=== PATIENT | male | born 1970 | race Two or more races ===

== ENCOUNTER 2020-02-29 00:01 | Inpatient (IN) | payer MEDICARE, MEDICAID ==
[~2020-02-29] VITALS: Ht 162.6 cm; Wt 67.8 kg
[2020-02-29 00:10] VITALS: BP 114/81
[2020-02-29] MEDS ORDERED: ASPIRIN81 MG GT (00:29)
[2020-02-29] MEDS ORDERED: KLONOPIN1 MG GT (00:30)
[2020-02-29] MEDS ORDERED: DULCOLAX10 MG RC (00:31)
[2020-02-29] MEDS ORDERED: LANSOPRAZOLE30 MG GT (00:32)
[2020-02-29] MEDS ORDERED: MILK OF MA400 MG/51 GT (00:33)
[2020-02-29] MEDS ORDERED: ATORVASTATIN CA10 MG GT (00:33)
[2020-02-29] MEDS ORDERED: MULTI-DELYN237 ML GT (00:34)
[2020-02-29 00:35] LABS: APPEARANCE,URINE SLIGHTLY CLOUDY; BILIRUBIN, URINE NEGATIVE (NEGATIVE); GLUCOSE, URINE (UA) NEGATIVE (NEGATIVE); KETONES,URINE 1+ (NEGATIVE); LEUKOCYTE ESTERASE ,URINE 3+ (NEGATIVE); NITRITE,URINE NEGATIVE (NEGATIVE); PH,URINE 8 (4.5-8.0); PROTEIN,URINE 2+ (NEGATIVE); UROBILINOGEN,URINE 4 MG/DL (0.0-1.0)
[2020-02-29] MEDS ORDERED: PRO-STAT LIQUID30 ML GT (00:35)
[2020-02-29] MEDS ORDERED: RISPERDAL2 MG GT (00:36)
[2020-02-29 00:37] LABS: COLOR,URINE YELLOW
[2020-02-29 00:38] LABS: HEMATOCRIT 35.8 % (37.0-47.0); MEAN CORPUSCULAR VOLUME 86 FL (80-99); PLATELET COUNT 318 K/UL (150-450); RED BLOOD COUNT 4.14 M/UL (4.20-5.40); RED CELL DISTRIBUTION WIDTH 15.7 % (11.6-14.8)
[2020-02-29] MEDS ORDERED: TRADJENTA5 MG GT (00:42)
[2020-02-29] MEDS ORDERED: ACETAMINOPHEN500 M5 GT (00:43)
[2020-02-29] MEDS ORDERED: VITAMIN C500 M1 GT (00:44)
[2020-02-29 00:48] LABS: ANION GAP 7 mmol/L (5-15); BLOOD UREA NITROGEN 22 mg/dL (7-18); CALCIUM 9.1 MG/DL (8.5-10.1); CARBON DIOXIDE 32 MMOL/L (21-32); CHLORIDE 103 MMOL/L (98-107); CREATININE 0.5 MG/DL (0.55-1.30); POTASSIUM 3.5 MMOL/L (3.5-5.1); SODIUM 142 MMOL/L (136-145)
[2020-02-29 00:54] LABS: WHITE BLOOD COUNT 24.4 K/UL (4.8-10.8)
[2020-02-29 01:04] LABS: ALANINE AMINOTRANSFERASE 13 U/L (12-78); ALBUMIN 2.7 G/DL (3.4-5.0); ALBUMIN/GLOBULIN RATIO 0.5 (1.0-2.7); ALKALINE PHOSPHATASE 73 U/L (46-116); AMYLASE 69 U/L (25-115); ASPARTATE AMINO TRANSFERASE 24 U/L (15-37); BILIRUBIN,TOTAL 0.6 MG/DL (0.2-1.0); CKMB 1.5 NG/ML (0.0-3.6); CREATINE KINASE 71 U/L (26-308); FERRITIN 384 NG/ML (8-388); LACTATE DEHYDROGENASE 149 U/L (81-234)
--- NOTE | 2020-02-29 01:13 | Emergency Room Report ---
History of Present Illness General Chief Complaint: Dyspnea/Respdistress Source: Medical Record, EMS Present Illness HPI 49-year-old male presents the ED for shortness of breath. Coming from [facility] facility tonight. Nursing staff noted patient O2 sat was low. Was placed on nonrebreather with improvement. Patient nonverbal at baseline. History of cerebral palsy. No reported fevers or chills. Unable to provide any additional history at this time. Reported negative COVID test 2 days ago. No other aggravating or relieving factors. No other associated symptoms Allergies: Coded Allergies: No Known Allergies (Unverified , 02/29/20) COVID-19 Screening Contact w/high risk pt: Yes Experienced COVID-19 symptoms?: Yes COVID-19 Testing performed CAN STRIPER: Yes COVID-19 Screening: Negative COVID-19 COVID-19 Testing Source: 02/26/20 Patient History Past Medical History: DM, other - cerebral palsy Past Surgical History: none Pertinent Family History: none Social History: Denies: smoking, alcohol use, drug use Immunizations: UTD Reviewed Nursing Documentation: PMH: Agreed; PSxH: Agreed Nursing Documentation-PMH Hx Diabetes: Yes Review of Systems All Other Systems: limited Physical Exam Vital Signs Date Time Temp Pulse Resp B/P (MAP) Pulse Ox O2 Delivery O2 Flow Rate FiO2 02/29/20 00:05 99.3 130 16 114/81 (92) 97 Non-Rebreather 15.0 Sp02 EP Interpretation: reviewed, normal General Appearance: GCS 15, non-toxic, mild distress, other - nonverbal Head: normocephalic, atraumatic Eyes: bilateral eye normal inspection, bilateral eye PERRL ENT: hearing grossly normal, normal pharynx, no angioedema, normal voice Neck: full range of motion, supple/symm/no masses Respiratory: chest non-tender, crackles, speaking full sentences Cardiovascular #1: no edema, tachycardia Cardiovascular #2: 2+ carotid (R), 2+ carotid (L), 2+ radial (R), 2+ radial (L) , 2+ dorsalis pedis (R), 2+ dorsalis pedis (L) Gastrointestinal: normal bowel sounds, non tender, soft, non-distended, no guarding, no rebound Rectal: deferred Musculoskeletal: back normal, normal range of motion, gait/station normal, non- tender Neurologic: other - nonverbal Psychiatric: other - nonverbal Reflexes: 3+ bicep (R), 3+ bicep (L), 3+ tricep (R), 3+ tricep (L), 3+ knee (R) , 3+ knee (L) Skin: other - see nursing notes Lymphatic: no adenopathy Medical Decision Making Diagnostic Impression: Primary Impression: Respiratory distress Additional Impressions: Pneumonia Qualified Codes: J18.9 - Pneumonia, unspecified organism UTI (urinary tract infection) Qualified Codes: N39.0 - Urinary tract infection, site not specified ER Course Hospital Course 49-year-old M presenting to ED with respiratory distress, hypoxic Differential diagnoses include: Pneumonia, CHF exacerbation, pneumothorax, fluid overload Clinical course Patient placed on stretcher. On playground monitor with hypoxia on room air and tachycardia. In isolation room. I wore full PPE. After initial history and physical, I ordered labs, IV fluids, EKG, chest x-ray, blood cultures, UA. Patient placed on NRB with O2 saturation improving Labs - marked leukocytosis, hemoglobin/hematocrit stable, electrolytes ok, lactate okay, troponins negative , UA + bacteria CXR - retrocardiac consolidation EKG - sinus tachycardia no acute ischemic changes interpreted by me COVID negative given IV fluids. Given broad-spectrum antibiotics. ABG shows no significant hypercapnia or hypoxia. O2 sats improved on nonrebreather. Patient is DNR/ selective Case discussed with Dr. Rain and he agreed to the patient to his service for further care and support I feel this is a highly complex case requiring extensive working including EKG/ Rhythm strip, Xray/CT/US, Blood/urine lab work, repeat exams while in ED, and administration of strong opiates/narcotics for pain control, admission to hospital or close patient follow up. Diagnosis - pneumonia, respiratory distress, UTI Patient admitted to telemetry in serious condition Laboratory Tests Test 02/29/20 00:10 02/29/20 00:29 White Blood Count 24.4 K/UL (4.8-10.8) *H Red Blood Count 4.14 M/UL (4.20-5.40) L Hemoglobin 12.0 G/DL (12.0-16.0) Hematocrit 35.8 % (37.0-47.0) L Mean Corpuscular Volume 86 FL (80-99) Mean Corpuscular Hemoglobin 29.0 PG (27.0-31.0) Mean Corpuscular Hemoglobin Concent 33.5 G/DL (32.0-36.0) Red Cell Distribution Width 15.7 % (11.6-14.8) H Platelet Count 318 K/UL (150-450) Mean Platelet Volume 7.3 FL (6.5-10.1) Neutrophils (%) (Auto) % (45.0-75.0) Lymphocytes (%) (Auto) % (20.0-45.0) Monocytes (%) (Auto) % (1.0-10.0) Eosinophils (%) (Auto) % (0.0-3.0) Basophils (%) (Auto) % (0.0-2.0) Differential Total Cells Counted 100 Neutrophils % (Manual) 85 % (45-75) H Lymphocytes % (Manual) 9 % (20-45) L Monocytes % (Manual) 6 % (1-10) Eosinophils % (Manual) 0 % (0-3) Basophils % (Manual) 0 % (0-2) Band Neutrophils 0 % (0-8) Platelet Estimate Adequate Platelet Morphology Normal Prothrombin Time 11.7 SEC (9.30-11.50) H Prothromb Time International Ratio 1.1 (0.9-1.1) Activated Partial Thromboplast Time 24 SEC (23-33) D-Dimer 4.34 mg/L FEU (0.00-0.49) H Urine Color Yellow Urine Appearance Slightly cloudy Urine pH 8 (4.5-8.0) Urine Specific [place] 1.015 (1.005-1.035) Urine Protein 2+ (NEGATIVE) H Urine Glucose (UA) Negative (NEGATIVE) Urine Ketones 1+ (NEGATIVE) H Urine Blood 5+ (NEGATIVE) H Urine Nitrite Negative (NEGATIVE) Urine Bilirubin Negative (NEGATIVE) Urine Urobilinogen 4 MG/DL (0.0-1.0) H Urine Leukocyte Esterase 3+ (NEGATIVE) H Urine RBC 40-60 /HPF (0 - 2) H Urine WBC 20-30 /HPF (0 - 2) H Urine Squamous Epithelial Cells Few /LPF (NONE/OCC) Urine Amorphous Sediment Moderate /LPF (NONE) H Urine Bacteria Moderate /HPF (NONE) H Urine Mucus Moderate /LPF (NONE/OCC) H Sodium Level 142 MMOL/L (136-145) Potassium Level 3.5 MMOL/L (3.5-5.1) Chloride Level 103 MMOL/L (98-107) Carbon Dioxide Level 32 MMOL/L (21-32) Anion Gap 7 mmol/L (5-15) Blood Urea Nitrogen 22 mg/dL (7-18) H Creatinine 0.5 MG/DL (0.55-1.30) L Estimat Glomerular Filtration Rate > 60 mL/min (>60) Glucose Level 167 MG/DL (74-106) H Lactic Acid Level 0.80 mmol/L (0.4-2.0) Calcium Level 9.1 MG/DL (8.5-10.1) Ferritin 384 NG/ML (8-388) Total Bilirubin 0.6 MG/DL (0.2-1.0) Aspartate Amino Transf (AST/SGOT) 24 U/L (15-37) Alanine Aminotransferase (ALT/SGPT) 13 U/L (12-78) Alkaline Phosphatase 73 U/L (46-116) Lactate Dehydrogenase 149 U/L (81-234) Total Creatine Kinase 71 U/L (26-308) Creatine Kinase MB 1.5 NG/ML (0.0-3.6) Creatine Kinase MB Relative Index 2.1 Troponin I 0.000 ng/mL (0.000-0.056) C-Reactive Protein, Quantitative 13.1 mg/dL (0.00-0.90) H Pro-B-Type Natriuretic Peptide 177 pg/mL (0-125) H Total Protein 8.7 G/DL (6.4-8.2) H Albumin 2.7 G/DL (3.4-5.0) L Globulin 6.0 g/dL Albumin/Globulin Ratio 0.5 (1.0-2.7) L Amylase Level 69 U/L (25-115) Arterial Blood pH 7.485 (7.350-7.450) Arterial Blood Partial Pressure CO2 36.1 mmHg (35.0-45.0) Arterial Blood Partial Pressure O2 189.7 mmHg (75.0-100.0) H Arterial Blood HCO3 26.6 mmol/L (22.0-26.0) H Arterial Blood Oxygen Saturation 98.9 % (95-100) Arterial Blood Base Excess 3.2 (-2-2) H Nazario Test Positive EKG Diagnostic Results Rate: tachycardiac Rhythm: NSR ST Segments: no acute changes ASA given to the pt in ED: No Rhythm Strip Diag. Results EP Interpretation: yes Rhythm: NSR, no PVC's, no ectopy Chest X-Ray Diagnostic Results Chest X-Ray Diagnostic Results : Chest X-Ray Ordered: Yes # of Views/Limited/Complete: 1 View Indication: Shortness of Breath EP Interpretation: Yes Interpretation: no pneumothorax, other - retrocardiac consolidation Impression: Other - pneumonia Electronically Signed by: Electronically signed by Pancho Bradley MD Last Vital Signs Date Time Temp Pulse Resp B/P (MAP) Pulse Ox O2 Delivery O2 Flow Rate FiO2 02/29/20 00:10 130 16 Non-Rebreather 15.0 02/29/20 00:10 99.3 114/81 97 Status: improved Disposition: ADMITTED INPATIENT Condition: Serious Referrals: NON PHYSICIAN (PCP) Pancho Bradley MD Feb 29, 2020 01:13
[2020-02-29] MEDS ORDERED: Azithromycin 500 MG in NS 275 ML IV ONE (01:15)
[2020-02-29] MEDS ORDERED: Piperacillin/Tazobactam 3.375 GM in NS 110 ML IVPB ONE ×2 (01:15→09:00)
--- NOTE | 2020-02-29 01:19 | Diagnostic Imaging Report ---
EXAM: XR Chest, 1 View CLINICAL HISTORY: SOB TECHNIQUE: Frontal view of the chest. COMPARISON: No relevant prior studies available. FINDINGS: Lungs: Low lung volumes with bronchovascular crowding. Retrocardiac and left base atelectasis or consolidation. Pleural space: No pleural effusion or pneumothorax. Heart: Unremarkable. No cardiomegaly. Mediastinum: Unremarkable. Bones/joints: No acute abnormality IMPRESSION: 1. Low lung volumes with bronchovascular crowding. 2. Retrocardiac and left base atelectasis or consolidation. 3. Otherwise no acute cardiopulmonary disease. 4. If there is continued concern, recommend frontal and lateral chest radiographs or CT.
[2020-02-29 01:24] LABS: INR 1.1 (0.9-1.1)
[2020-02-29 02:30] VITALS: BP 121/78
--- NOTE | 2020-02-29 03:15 | Consultation ---
DATE OF CONSULTATION: 02/29/2020 CONSULTING PHYSICIAN: Delio Rain M.D. REQUESTING PHYSICIAN: Dayne Liriano M.D. REASON FOR CONSULTATION: Tachycardia. HISTORY OF PRESENT ILLNESS: This 49-year-old male presented to the emergency room from a shelter facility because of shortness of breath, congestion, and hypoxia. He was placed on a non-rebreather mask with some improvement. He has a history of developmental delay and cerebral palsy. The patient had a COVID swab 2 days ago at the facility that was negative. It was repeated in the emergency room at [place] and was again negative. The patient has had cough and congestion, but no fevers or other constitutional symptoms. PAST MEDICAL HISTORY: Type 2 diabetes mellitus, cerebral palsy, hypertension. ALLERGIES: None. MEDICATIONS: Reviewed and reconciled. FAMILY HISTORY: None known. SOCIAL HISTORY: Not negative for smoking or alcohol use. REVIEW OF SYSTEMS: Not obtainable from the patient. Review of shelter records is performed and pertinent data as outlined above. PHYSICAL EXAMINATION: VITAL SIGNS: Temperature 99.3, blood pressure 114/81, heart rate 130, respiratory rate 16. On a non-rebreather mask, he is saturating 97%. LUNGS: Bilateral breath sounds. Scattered rhonchi. Accessory muscle use. CARDIOVASCULAR: Regular rhythm. Rapid rate. Normal S1 and S2. No murmur. ABDOMEN: Soft. EXTREMITIES: No edema. NEUROLOGIC: Nonfocal. Moderate cognitive impairment. LABORATORY DATA: EKG with sinus tachycardia, no acute abnormalities. Chest x-ray with right basilar infiltrate and patchy infiltrate on the left. Lactic acid normal. Troponin 0. Sodium 142, potassium 3.5, bicarb 32, BUN 22, creatinine 0.5, and glucose 167. Pro-natriuretic peptide 177. Albumin 2.7. White count 24.4 and hemoglobin 12. ABG, 7.48, 36, 189. Urinalysis with 40 to 60 red cells, 20 to 30 white cells. IMPRESSION: 1. Severe sepsis. 2. Urinary tract infection. 3. Healthcare-associated pneumonia, aspiration risk. 4. Sinus tachycardia. 5. Acute myocardial ischemia. 6. Chronic diastolic congestive heart failure. 7. Leukocytosis. 8. Moderate protein calorie malnutrition. 9. Cerebral palsy. 10. Prerenal azotemia. 11. Hypovolemia and dehydration. PLAN: 1. Address advance directives. 2. Hydrate with saline. 3. Insulin coverage by sliding scale. 4. Panculture. 5. Broad-spectrum antimicrobials. 6. DVT and stress ulcer prophylaxis. Delio Rain M.D. DR: MALKA JOB#: [id number] CC:
[2020-02-29] MEDS ORDERED: Vancomycin 1gm/D5W 275ml IVPB ONE ×2 (06:00)
[2020-02-29] MEDS: NovoLOG Insulin Flexpen SUBQ SCH ×3 (06:30→18:00)
[2020-02-29] MEDS ORDERED: NovoLOG Insulin Flexpen SUBQ SCH (06:30)
[2020-02-29] MEDS ORDERED: Vancomycin 1gm vial IVPB ONE (06:31)
[2020-02-29] MEDS: NS w/KCl 20mEq 1000ml 1,000 ML IV SCH ×2 (06:38→16:47)
[2020-02-29] MEDS: Albuterol/Ipratropium 3ml neb HHN SCH ×3 (07:35→20:36)
[2020-02-29 08:00] VITALS: BP 117/74
[2020-02-29] MEDS: Heparin 5000 units/ml inj SUBQ SCH ×2 (09:00→21:03)
--- NOTE | 2020-02-29 09:44 | History and Physical Report ---
DATE OF ADMISSION: 02/29/2020 CHIEF COMPLAINT: Shortness of breath and fever. HISTORY OF PRESENT ILLNESS: The patient is an unfortunate 49-year-old male. He has a history of cerebral palsy, hypertension, diabetes, hyperlipidemia, who was transferred from a residential facility with complaints of hypoxemia. On evaluation in the emergency room, the patient was hypoxic and placed on a non-rebreather. X-ray showed left basilar retrocardiac infiltrates. The patient has been started on broad-spectrum IV antibiotic therapy. He is now admitted for further evaluation and care. PAST MEDICAL HISTORY: As above. PAST SURGICAL HISTORY: Includes a G-tube. CURRENT MEDICATIONS: Reconciled and reviewed. ALLERGIES: None. FAMILY HISTORY: None. SOCIAL HISTORY: There is no known history of tobacco, ethanol, or drugs. REVIEW OF SYSTEMS: Unobtainable, as the patient is confused. PHYSICAL EXAMINATION: VITAL SIGNS: Temperature 99, pulse 124, respirations 18, and blood pressure 121/78. GENERAL: The patient is chronically ill-appearing, thin male, in no apparent distress. HEENT: The head is normocephalic and atraumatic. NECK: Supple. No adenopathy. HEART: Regular rate and rhythm. LUNGS: Significant for diminished breath sounds with scattered rhonchi. ABDOMEN: Soft, nontender, nondistended. EXTREMITIES: Without clubbing, cyanosis, or edema. LABORATORY DATA: Sodium 142, potassium 3.5. White count 24, hemoglobin 12. UA showed 20 to 30 wbc's. ASSESSMENT: This is an unfortunate 49-year-old male with a history of cerebral palsy, hypertension, hyperlipidemia, diabetes, admitted with complaints of sepsis secondary to pneumonia. 1. Sepsis. 2. Pneumonia. 3. Respiratory failure. 4. Cerebral palsy. 5. Dysphagia. 6. Hypertension. 7. Diabetes. PLAN: IV antibiotics. Follow up pending cultures. Wean oxygen. Continue G-tube feeds. Monitor for aspiration. Continue DVT and stress ulcer prophylaxis. Cardiac treatment per [facility] consultant staff forester. ID consultation is pending. Dayne Liriano M.D. DR: SHAWNA JOB#: [id number] CC:
[2020-02-29 11:53] LABS: HEMATOCRIT 30.3 % (42.0-52.0); HEMOGLOBIN 9.8 G/DL (14.2-18.0); MEAN CORPUSCULAR VOLUME 87 FL (80-99); PLATELET COUNT 267 K/UL (150-450); RED BLOOD COUNT 3.48 M/UL (4.70-6.10); RED CELL DISTRIBUTION WIDTH 15.9 % (11.6-14.8)
[2020-02-29 11:59] LABS: WHITE BLOOD COUNT 24.9 K/UL (4.8-10.8)
[2020-02-29 12:00] VITALS: BP 102/68
--- NOTE | 2020-02-29 12:09 | Consultation ---
History of Present Illness General Date patient seen: Feb 29, 2020 Reason for Hospitalization: Dyspnea/Respdistress Present Illness HPI This is a 49-year-old male with multiple medical comorbidities who is a snf facility patient requiring care the present at [facility] with respiratory insufficiency shortness of breath admitted further care and management. On admission identified to have abnormal lab significantly low BMI as well as a large sacral decubitus ulcer stage IV. Surgery called to evaluate and assist with care and management of patient. Patient seen, patient evaluated , chart reviewed. Care plan initiated. patient states he is well. unable to provide history. on Face mask covid neg Allergies: Coded Allergies: No Known Allergies (Unverified , 02/29/20) COVID-19 Screening Contact w/high risk pt: Yes Experienced COVID-19 symptoms?: Yes COVID-19 symptoms experienced: Shortness of Breath Medication History Scheduled Acetaminophen (Acetaminophen), 325 MG ORAL Q4H, (Reported) Amino Acids/Protein Hydrolys (Pro-Stat Liquid), 30 ML ORAL DAILY, (Reported) Ascorbic Acid* (Vitamin C*), 500 MG ORAL DAILY, (Reported) Aspirin* (Aspirin*), 81 MG ORAL DAILY, (Reported) Atorvastatin Calcium* (Lipitor*), 10 MG ORAL BEDTIME, (Reported) Bisacodyl (Dulcolax), 10 MG RC DAILY, (Reported) Clonazepam* (Klonopin*), 2 MG ORAL BEDTIME, (Reported) Lansoprazole* (Lansoprazole*), 30 MG ORAL DAILY, (Reported) Linagliptin (Tradjenta), 5 MG PO ACBREAKFAST, (Reported) Magnesium Hydroxide* (Milk Of Magnesia*), 30 ML ORAL DAILY, (Reported) Multivitamin Liquid* (Multi-Delyn*), 15 ML GT DAILY, (Reported) Risperidone* (Risperdal*), 2 MG ORAL BEDTIME, (Reported) Patient History Limited by: medical condition History Provided By: Medical Record, PMD Healthcare decision maker Resuscitation status Advanced Directive on File Past Medical/Surgical History Past Medical/Surgical History: (1) Protein-calorie malnutrition, severe (2) Stage 4 skin ulcer of sacral region (3) UTI (urinary tract infection) (4) Pneumonia (5) Respiratory distress (6) SOB (shortness of breath) Review of Systems Review of Symptoms General ROS: no weight loss or fever Psychological ROS: no depression or mood changes, no memory loss Ophthalmic ROS: no visual changes or eye irritation ENT ROS: no nasal congestion, hearing loss, dizziness Allergy and Immunology ROS: no allergic symptoms or urticaria Hematological and Lymphatic ROS: no swollen glands, unusual bleeding or bruising Endocrine ROS: no polyuria, polydipsia, weight changes, temperature intolerance Respiratory ROS: no cough, shortness of breath, or wheezing Cardiovascular ROS: no chest pain or dyspnea on exertion Gastrointestinal ROS: denies abdominal pain, bright red blood in stool. Musculoskeletal ROS: no myalgias or arthralgias Neurological ROS: no TIA or stroke symptoms Dermatological ROS: no new or changing skin lesions, rashes or pruritis Physical Exam Physical Exam General appearance: alert, cooperative, no distress, appears stated age Head: Normocephalic, without obvious abnormality, atraumatic Eyes: conjunctivae/corneas clear. PERRL, EOM's intact. Fundi benign Throat: Lips, mucosa, and tongue normal. Teeth and gums normal Neck: supple, symmetrical, trachea midline, no adenopathy, thyroid: not enlarged, symmetric, no tenderness/mass/nodules, no carotid bruit and no JVD Lungs: clear to auscultation bilaterally Heart: regular rate and rhythm, S1, S2 normal, no murmur, click, rub or gallop Abdomen: soft, non-tender. Bowel sounds normal. No masses, no organomegaly Extremities: extremities normal, atraumatic, no cyanosis or edema Pulses: 2+ and symmetric Skin: Skin see below Neurologic: Grossly normal Last 24 Hour Vital Signs Date Time Temp Pulse Resp B/P (MAP) Pulse Ox O2 Delivery O2 Flow Rate FiO2 02/29/20 08:47 Venturi Mask 8.0 02/29/20 08:00 116 02/29/20 08:00 98.6 86 20 117/74 (88) 96 02/29/20 07:45 101 18 100 Venturi Mask 14.0 55 108 20 100 02/29/20 07:45 108 20 100 Venturi Mask 14.0 55 02/29/20 05:22 Non-Rebreather 15.0 02/29/20 04:25 99.0 124 18 121/78 100 Non-Rebreather 15.0 02/29/20 02:30 99.0 124 18 121/78 100 Non-Rebreather 15.0 02/29/20 00:10 130 16 Non-Rebreather 15.0 02/29/20 00:10 99.3 130 16 114/81 97 Non-Rebreather 15.0 02/29/20 00:05 99.3 130 16 114/81 (92) 97 Non-Rebreather 15.0 Intake and Output 02/28/20 02/29/20 19:00 07:00 Output Total 600 ml Balance -600 ml Output Urine Total 600 ml Laboratory Tests Test 02/29/20 00:10 02/29/20 00:29 02/29/20 11:45 White Blood Count 24.4 K/UL (4.8-10.8) *H 24.9 K/UL (4.8-10.8) *H Red Blood Count 4.14 M/UL (4.20-5.40) L 3.48 M/UL (4.70-6.10) L Hemoglobin 12.0 G/DL (12.0-16.0) 9.8 G/DL (14.2-18.0) L Hematocrit 35.8 % (37.0-47.0) L 30.3 % (42.0-52.0) L Mean Corpuscular Volume 86 FL (80-99) 87 FL (80-99) Mean Corpuscular Hemoglobin 29.0 PG (27.0-31.0) 28.2 PG (27.0-31.0) Mean Corpuscular Hemoglobin Concent 33.5 G/DL (32.0-36.0) 32.4 G/DL (32.0-36.0) Red Cell Distribution Width 15.7 % (11.6-14.8) H 15.9 % (11.6-14.8) H Platelet Count 318 K/UL (150-450) 267 K/UL (150-450) Mean Platelet Volume 7.3 FL (6.5-10.1) 6.7 FL (6.5-10.1) Neutrophils (%) (Auto) % (45.0-75.0) % (45.0-75.0) Lymphocytes (%) (Auto) % (20.0-45.0) % (20.0-45.0) Monocytes (%) (Auto) % (1.0-10.0) % (1.0-10.0) Eosinophils (%) (Auto) % (0.0-3.0) % (0.0-3.0) Basophils (%) (Auto) % (0.0-2.0) % (0.0-2.0) Differential Total Cells Counted 100 Neutrophils % (Manual) 85 % (45-75) H Pending Lymphocytes % (Manual) 9 % (20-45) L Pending Monocytes % (Manual) 6 % (1-10) Eosinophils % (Manual) 0 % (0-3) Basophils % (Manual) 0 % (0-2) Band Neutrophils 0 % (0-8) Platelet Estimate Adequate Pending Platelet Morphology Normal Pending Prothrombin Time 11.7 SEC (9.30-11.50) H Prothromb Time International Ratio 1.1 (0.9-1.1) Activated Partial Thromboplast Time 24 SEC (23-33) D-Dimer 4.34 mg/L FEU (0.00-0.49) H Urine Color Yellow Urine Appearance Slightly cloudy Urine pH 8 (4.5-8.0) Urine Specific [place] 1.015 (1.005-1.035) Urine Protein 2+ (NEGATIVE) H Urine Glucose (UA) Negative (NEGATIVE) Urine Ketones 1+ (NEGATIVE) H Urine Blood 5+ (NEGATIVE) H Urine Nitrite Negative (NEGATIVE) Urine Bilirubin Negative (NEGATIVE) Urine Urobilinogen 4 MG/DL (0.0-1.0) H Urine Leukocyte Esterase 3+ (NEGATIVE) H Urine RBC 40-60 /HPF (0 - 2) H Urine WBC 20-30 /HPF (0 - 2) H Urine Squamous Epithelial Cells Few /LPF (NONE/OCC) Urine Amorphous Sediment Moderate /LPF (NONE) H Urine Bacteria Moderate /HPF (NONE) H Urine Mucus Moderate /LPF (NONE/OCC) H Sodium Level 142 MMOL/L (136-145) Pending Potassium Level 3.5 MMOL/L (3.5-5.1) Pending Chloride Level 103 MMOL/L (98-107) Pending Carbon Dioxide Level 32 MMOL/L (21-32) Pending Anion Gap 7 mmol/L (5-15) Blood Urea Nitrogen 22 mg/dL (7-18) H Pending Creatinine 0.5 MG/DL (0.55-1.30) L Pending Estimat Glomerular Filtration Rate > 60 mL/min (>60) Pending Glucose Level 167 MG/DL (74-106) H Pending Lactic Acid Level 0.80 mmol/L (0.4-2.0) Calcium Level 9.1 MG/DL (8.5-10.1) Pending Ferritin 384 NG/ML (8-388) Total Bilirubin 0.6 MG/DL (0.2-1.0) Pending Aspartate Amino Transf (AST/SGOT) 24 U/L (15-37) Pending Alanine Aminotransferase (ALT/SGPT) 13 U/L (12-78) Pending Alkaline Phosphatase 73 U/L (46-116) Pending Lactate Dehydrogenase 149 U/L (81-234) Total Creatine Kinase 71 U/L (26-308) Creatine Kinase MB 1.5 NG/ML (0.0-3.6) Creatine Kinase MB Relative Index 2.1 Troponin I 0.000 ng/mL (0.000-0.056) C-Reactive Protein, Quantitative 13.1 mg/dL (0.00-0.90) H Pro-B-Type Natriuretic Peptide 177 pg/mL (0-125) H Total Protein 8.7 G/DL (6.4-8.2) H Pending Albumin 2.7 G/DL (3.4-5.0) L Pending Globulin 6.0 g/dL Pending Albumin/Globulin Ratio 0.5 (1.0-2.7) L Amylase Level 69 U/L (25-115) Arterial Blood pH 7.485 (7.350-7.450) Arterial Blood Partial Pressure CO2 36.1 mmHg (35.0-45.0) Arterial Blood Partial Pressure O2 189.7 mmHg (75.0-100.0) H Arterial Blood HCO3 26.6 mmol/L (22.0-26.0) H Arterial Blood Oxygen Saturation 98.9 % (95-100) Arterial Blood Base Excess 3.2 (-2-2) H Nazario Test Positive Magnesium Level Pending Thyroid Stimulating Hormone (TSH) Pending Microbiology Date/Time Source Procedure Growth Status 02/29/20 00:30 Nasopharynx SARS-CoV-2 RdRp Gene Assay - Final Complete Height (Feet): 5 Height (Inches): 4.00 Weight (Pounds): 114 Medications Current Medications Medications (Trade) Dose Ordered Sig/Mohan Route PRN Reason Start Time Stop Time Status Last Admin Dose Admin Acetaminophen (Tylenol) 650 mg Q4H PRN ORAL fever/bright 02/29/20 02:15 03/30/20 02:14 Albuterol/ Ipratropium (Albuterol/ Ipratropium) 3 ml Q6HRT HHN 02/29/20 07:00 03/05/20 06:59 02/29/20 07:35 Clonazepam (KlonoPIN) 1 mg BEDTIME ORAL 02/29/20 21:00 03/07/20 20:59 Dextrose (Dextrose 50%) 25 ml Q30M PRN IV Hypoglycemia 02/29/20 02:15 05/29/20 02:14 Dextrose (Dextrose 50%) 50 ml Q30M PRN IV Hypoglycemia 02/29/20 02:15 05/29/20 02:14 Heparin Sodium (Porcine) (Heparin 5000 units/ml) 5,000 units EVERY 12 HOURS SUBQ 02/29/20 09:00 04/14/20 08:59 02/29/20 09:00 Insulin Aspart (NovoLOG) BEFORE MEALS AND HS SUBQ 02/29/20 06:30 05/29/20 06:29 Potassium Chloride/Sodium Chloride 1,000 ml @ 100 mls/hr Q10H IV 02/29/20 07:00 03/30/20 06:59 02/29/20 06:38 Risperidone (RisperDAL) 1 mg BEDTIME ORAL 02/29/20 21:00 04/14/20 20:59 Vancomycin HCl ([facility] pharmacy to dose) 1 ea DAILY PRN MISC Per rx protocol 02/29/20 02:15 03/30/20 02:14 Vancomycin HCl 750 mg/Sodium Chloride 275 ml @ 183.333 mls/hr Q12H IVPB 02/29/20 18:00 03/05/20 17:59 Assessment/Plan Problem List: (1) UTI (urinary tract infection) ICD Codes: N39.0 - Urinary tract infection, site not specified SNOMED: 44155533 Qualifiers: Qualified Codes: N39.0 - Urinary tract infection, site not specified (2) Pneumonia ICD Codes: J18.9 - Pneumonia, unspecified organism SNOMED: 153556061 Qualifiers: Qualified Codes: J18.9 - Pneumonia, unspecified organism (3) Respiratory distress Assessment & Plan: Lungs: Low lung volumes with bronchovascular crowding. Retrocardiac and left base atelectasis or consolidation. Pleural space: No pleural effusion or pneumothorax. Heart: Unremarkable. No cardiomegaly. Mediastinum: Unremarkable. Bones/joints: No acute abnormality IMPRESSION: 1. Low lung volumes with bronchovascular crowding. 2. Retrocardiac and left base atelectasis or consolidation. 3. Otherwise no acute cardiopulmonary disease. 4. If there is continued concern, recommend frontal and lateral chest radiographs or CT. ICD Codes: R06.03 - Acute respiratory distress SNOMED: 978794787 (4) SOB (shortness of breath) ICD Codes: R06.02 - Shortness of breath SNOMED: 202401219 (5) Protein-calorie malnutrition, severe ICD Codes: E43 - Unspecified severe protein-calorie malnutrition SNOMED: 483721541, 763894271, 882694070 (6) Stage 4 skin ulcer of sacral region Assessment & Plan: Patient identified admission to have significant low body weight BMI 19 abnormal labs and a stage IV sacral decubitus ulcer. Ulcer was identified to likely have prior intervention. Bone is palpable. There is granulation tissue identified with minimal tunneling. Periwound is intact and chronically scarred. No significant maceration identified no purulent drainage no foul odor. Wound washed and dressings applied. Care plan initiated. Nutritional optimization, local care, air mattress, turn every 2 hours, offload pressure. Will follow with recommendations. Thank you for let me participate in patient's care ICD Codes: L98.429 - Non-pressure chronic ulcer of back with unspecified severity SNOMED: 39994342, 135872547 Yaniv Eden Feb 29, 2020 12:09
[2020-02-29 12:12] LABS: ANION GAP 9 mmol/L (5-15); BLOOD UREA NITROGEN 16 mg/dL (7-18); CALCIUM 8.6 MG/DL (8.5-10.1); CARBON DIOXIDE 29 MMOL/L (21-32); CHLORIDE 106 MMOL/L (98-107); CREATININE 0.3 MG/DL (0.55-1.30); POTASSIUM 3.6 MMOL/L (3.5-5.1); SODIUM 144 MMOL/L (136-145)
[2020-02-29 12:25] LABS: ALANINE AMINOTRANSFERASE 14 U/L (12-78); ALBUMIN 2.2 G/DL (3.4-5.0); ALBUMIN/GLOBULIN RATIO 0.5 (1.0-2.7); ALKALINE PHOSPHATASE 64 U/L (46-116); ASPARTATE AMINO TRANSFERASE 20 U/L (15-37); BILIRUBIN,TOTAL 0.7 MG/DL (0.2-1.0)
[2020-02-29 16:00] VITALS: BP 110/72
[2020-02-29] MEDS: Vancomycin 750mg/NS 275ml IVPB SCH ×2 (17:56)
[2020-02-29 20:00] VITALS: BP 119/70
[2020-03-01] VITALS: BP 117/72
--- NOTE | 2020-03-01 00:28 | Cardiology Progress Note ---
Subjective DATE OF SERVICE: Mar 01, 2020 Still withdrawn and lethargic. Congested and SOB. Remains on empiric abx Objective Last 24 Hour Vital Signs Date Time Temp Pulse Resp B/P (MAP) Pulse Ox O2 Delivery O2 Flow Rate FiO2 02/29/20 21:00 Venturi Mask 6.0 02/29/20 20:31 104 20 100 Venturi Mask 6.0 35 102 20 98 02/29/20 20:00 90 02/29/20 20:00 97.5 92 22 119/70 (86) 100 02/29/20 16:00 98.0 105 18 110/72 (85) 99 02/29/20 16:00 105 02/29/20 13:02 100 18 100 Venturi Mask 6.0 35 98 20 100 02/29/20 12:00 100 02/29/20 12:00 98.2 85 20 102/68 (79) 98 02/29/20 08:47 Venturi Mask 8.0 02/29/20 08:00 116 02/29/20 08:00 98.6 86 20 117/74 (88) 96 02/29/20 07:45 101 18 100 Venturi Mask 14.0 55 108 20 100 02/29/20 07:45 108 20 100 Venturi Mask 14.0 55 02/29/20 05:22 Non-Rebreather 15.0 02/29/20 04:25 99.0 124 18 121/78 100 Non-Rebreather 15.0 02/29/20 02:30 99.0 124 18 121/78 100 Non-Rebreather 15.0 ROS: no change from my dictation of 02/28/20 HEENT: normal ENT inspection RHYTHM: ST, PACs LUNGS: bilat. rhonchi and rales CARDIAC: regular rhythm, normal S1 and S2, tachycardia ABDOMEN: normal bowel sounds, non tender, soft, no organomegaly, no mass EXTREMITIES: non-tender, No edema Laboratory Tests Test 02/29/20 00:29 02/29/20 11:45 02/29/20 23:48 Arterial Blood pH 7.485 (7.350-7.450) Arterial Blood Partial Pressure CO2 36.1 mmHg (35.0-45.0) Arterial Blood Partial Pressure O2 189.7 mmHg (75.0-100.0) H Arterial Blood HCO3 26.6 mmol/L (22.0-26.0) H Arterial Blood Oxygen Saturation 98.9 % (95-100) Arterial Blood Base Excess 3.2 (-2-2) H Nazario Test Positive White Blood Count 24.9 K/UL (4.8-10.8) *H Red Blood Count 3.48 M/UL (4.70-6.10) L Hemoglobin 9.8 G/DL (14.2-18.0) L Hematocrit 30.3 % (42.0-52.0) L Mean Corpuscular Volume 87 FL (80-99) Mean Corpuscular Hemoglobin 28.2 PG (27.0-31.0) Mean Corpuscular Hemoglobin Concent 32.4 G/DL (32.0-36.0) Red Cell Distribution Width 15.9 % (11.6-14.8) H Platelet Count 267 K/UL (150-450) Mean Platelet Volume 6.7 FL (6.5-10.1) Neutrophils (%) (Auto) % (45.0-75.0) Lymphocytes (%) (Auto) % (20.0-45.0) Monocytes (%) (Auto) % (1.0-10.0) Eosinophils (%) (Auto) % (0.0-3.0) Basophils (%) (Auto) % (0.0-2.0) Differential Total Cells Counted 100 Neutrophils % (Manual) 84 % (45-75) H Lymphocytes % (Manual) 13 % (20-45) L Monocytes % (Manual) 3 % (1-10) Eosinophils % (Manual) 0 % (0-3) Basophils % (Manual) 0 % (0-2) Band Neutrophils 0 % (0-8) Platelet Estimate Adequate Platelet Morphology Normal Hypochromasia 2+ Anisocytosis 1+ Sodium Level 144 MMOL/L (136-145) Potassium Level 3.6 MMOL/L (3.5-5.1) Chloride Level 106 MMOL/L (98-107) Carbon Dioxide Level 29 MMOL/L (21-32) Anion Gap 9 mmol/L (5-15) Blood Urea Nitrogen 16 mg/dL (7-18) Creatinine 0.3 MG/DL (0.55-1.30) L Estimat Glomerular Filtration Rate > 60 mL/min (>60) Glucose Level 150 MG/DL (74-106) H Calcium Level 8.6 MG/DL (8.5-10.1) Magnesium Level 2.0 MG/DL (1.8-2.4) Total Bilirubin 0.7 MG/DL (0.2-1.0) Aspartate Amino Transf (AST/SGOT) 20 U/L (15-37) Alanine Aminotransferase (ALT/SGPT) 14 U/L (12-78) Alkaline Phosphatase 64 U/L (46-116) Total Protein 6.6 G/DL (6.4-8.2) Albumin 2.2 G/DL (3.4-5.0) L Globulin 4.4 g/dL Albumin/Globulin Ratio 0.5 (1.0-2.7) L Thyroid Stimulating Hormone (TSH) 3.466 uiU/mL (0.358-3.740) POC Whole Blood Glucose 114 MG/DL (74-106) H Microbiology Date/Time Source Procedure Growth Status 02/29/20 00:30 Nasopharynx SARS-CoV-2 RdRp Gene Assay - Final Complete Assessment/Plan Assessment/Plan Healthcare associated PNA Aspiration Sepsis Sinus tachycardia Acute myocardial ischemia Leukocytosis Hypovolemia/dehydration Stage 4 sacral decubitus Severe protein/calorie malnutrition 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
[2020-03-01] MEDS: Albuterol/Ipratropium 3ml neb HHN SCH ×4 (00:38→20:09)
[2020-03-01] MEDS: NS w/KCl 20mEq 1000ml 1,000 ML IV SCH ×3 (03:44→22:31)
[2020-03-01 04:00] VITALS: BP 119/73
[2020-03-01] MEDS: NovoLOG Insulin Flexpen SUBQ SCH ×4 (06:00→17:51)
[2020-03-01] MEDS: Vancomycin 750mg/NS 275ml IVPB SCH ×4 (06:12→17:49)
--- NOTE | 2020-03-01 08:16 | General Progress Note ---
Assessment/Plan Problem List: (1) Hospital-acquired pneumonia ICD Codes: J18.9 - Pneumonia, unspecified organism; Y95 - Nosocomial condition SNOMED: 075118578 (2) Pneumonia ICD Codes: J18.9 - Pneumonia, unspecified organism SNOMED: 015568391 Qualifiers: Qualified Codes: J18.9 - Pneumonia, unspecified organism (3) SOB (shortness of breath) ICD Codes: R06.02 - Shortness of breath SNOMED: 291848472 (4) Stage 4 skin ulcer of sacral region ICD Codes: L98.429 - Non-pressure chronic ulcer of back with unspecified severity SNOMED: 67333708, 484800384 (5) Protein-calorie malnutrition, severe ICD Codes: E43 - Unspecified severe protein-calorie malnutrition SNOMED: 706857554, 565392280, 946776251 Status: stable, progressing Assessment/Plan: cont iv abx follow up cultures monitor cxr ivf gt feeds dvt/stress ulcer prophylaxis turn q2 wound care cont resp care suctioning RT to try to wean fio2 per surgery Subjective Constitutional: Reports: malaise, weakness HEENT: Reports: no symptoms Cardiovascular: Reports: no symptoms Respiratory: Reports: cough, shortness of breath, sputum Gastrointestinal/Abdominal: Reports: difficulty swallowing Genitourinary: Reports: no symptoms Neurologic/Psychiatric: Reports: pre-existing deficit Endocrine: Reports: no symptoms Hematologic/Lymphatic: Reports: no symptoms Allergies: Coded Allergies: No Known Allergies (Unverified , 02/29/20) All Systems: reviewed and negative except above Subjective slightly better today. decreased fio2 requirements. remains on ventimask. per RT decreased secretions. on iv abx. tolerating GT feeds. withdrawn and poorly responsive. Objective Last 24 Hour Vital Signs Date Time Temp Pulse Resp B/P (MAP) Pulse Ox O2 Delivery O2 Flow Rate FiO2 03/01/20 07:52 88 20 100 Venturi Mask 6.0 35 85 18 100 03/01/20 04:00 97.9 96 22 119/73 (88) 100 03/01/20 04:00 91 03/01/20 00:39 105 20 100 Venturi Mask 6.0 35 106 20 99 03/01/20 00:00 96.6 107 24 117/72 (87) 100 03/01/20 00:00 101 9/12/20 21:00 Venturi Mask 6.0 02/29/20 20:31 104 20 100 Venturi Mask 6.0 35 102 20 98 02/29/20 20:00 90 02/29/20 20:00 97.5 92 22 119/70 (86) 100 02/29/20 16:00 98.0 105 18 110/72 (85) 99 02/29/20 16:00 105 02/29/20 13:02 100 18 100 Venturi Mask 6.0 35 98 20 100 02/29/20 12:00 100 02/29/20 12:00 98.2 85 20 102/68 (79) 98 02/29/20 08:47 Venturi Mask 8.0 Intake and Output 02/29/20 03/01/20 19:00 07:00 Intake Total 30 ml 480 ml Output Total 1200 ml 400 ml Balance -1170 ml 80 ml Intake Free Water 150 ml Tube Feeding 30 ml 330 ml Output Urine Total 1200 ml 400 ml Laboratory Tests 02/29/20 11:45: White Blood Count 24.9*H, Red Blood Count 3.48L, Hemoglobin 9.8L, Hematocrit 30.3L, Mean Corpuscular Volume 87, Mean Corpuscular Hemoglobin 28.2, Mean Corpuscular Hemoglobin Concent 32.4, Red Cell Distribution Width 15.9H, Platelet Count 267, Mean Platelet Volume 6.7, Neutrophils (%) (Auto) , Lymphocytes (%) (Auto) , Monocytes (%) (Auto) , Eosinophils (%) (Auto) , Basophils (%) (Auto) , Differential Total Cells Counted 100, Neutrophils % ( Manual) 84H, Lymphocytes % (Manual) 13L, Monocytes % (Manual) 3, Eosinophils % ( Manual) 0, Basophils % (Manual) 0, Band Neutrophils 0, Platelet Estimate Adequate, Platelet Morphology Normal, Hypochromasia 2+, Anisocytosis 1+, Sodium Level 144, Potassium Level 3.6, Chloride Level 106, Carbon Dioxide Level 29, Anion Gap 9, Blood Urea Nitrogen 16, Creatinine 0.3L, Estimat Glomerular Filtration Rate > 60, Glucose Level 150H, Calcium Level 8.6, Magnesium Level 2.0 , Total Bilirubin 0.7, Aspartate Amino Transf (AST/SGOT) 20, Alanine Aminotransferase (ALT/SGPT) 14, Alkaline Phosphatase 64, Total Protein 6.6, Albumin 2.2L, Globulin 4.4, Albumin/Globulin Ratio 0.5L, Thyroid Stimulating Hormone (TSH) 3.466 02/29/20 23:48: POC Whole Blood Glucose 114H Height (Feet): 5 Height (Inches): 4.00 Weight (Pounds): 114 General Appearance: WD/WN, lethargic, confused, thin EENT: normal ENT inspection Neck: non-tender, normal alignment, supple Cardiovascular: normal peripheral pulses, normal rate, regular rhythm Respiratory/Chest: chest wall non-tender, rhonchi - bilaterally Abdomen: normal bowel sounds, non tender, soft, no organomegaly Edema: no edema noted Arm (L), no edema noted Arm (R) Neurologic: disoriented, unresponsive, aphasia Lymphatic: normal anterior cervical (L), normal anterior cervical (R) Dayne Liriano MD Mar 01, 2020 08:16
[2020-03-01 08:36] VITALS: BP 109/63
[2020-03-01] MEDS: Heparin 5000 units/ml inj SUBQ SCH ×2 (09:21→21:03)
[2020-03-01 10:16] LABS: HEMATOCRIT 30.5 % (42.0-52.0); HEMOGLOBIN 9.7 G/DL (14.2-18.0); MEAN CORPUSCULAR VOLUME 88 FL (80-99); PLATELET COUNT 240 K/UL (150-450); RED BLOOD COUNT 3.46 M/UL (4.70-6.10); RED CELL DISTRIBUTION WIDTH 15.6 % (11.6-14.8); WHITE BLOOD COUNT 15.6 K/UL (4.8-10.8)
[2020-03-01 10:34] LABS: ALANINE AMINOTRANSFERASE 12 U/L (12-78); ALBUMIN 2.2 G/DL (3.4-5.0); ALBUMIN/GLOBULIN RATIO 0.4 (1.0-2.7); ALKALINE PHOSPHATASE 61 U/L (46-116); ANION GAP 8 mmol/L (5-15); ASPARTATE AMINO TRANSFERASE 18 U/L (15-37); BILIRUBIN,TOTAL 0.4 MG/DL (0.2-1.0); BLOOD UREA NITROGEN 9 mg/dL (7-18); CALCIUM 8.3 MG/DL (8.5-10.1); CARBON DIOXIDE 28 MMOL/L (21-32); CHLORIDE 110 MMOL/L (98-107); CREATININE 0.3 MG/DL (0.55-1.30); POTASSIUM 3.9 MMOL/L (3.5-5.1); SODIUM 146 MMOL/L (136-145)
[2020-03-01 12:00] VITALS: BP 110/69
[2020-03-01] MEDS: Piperacillin/Tazobactam 3.375 GM in NS 110 ML IVPB SCH ×2 (13:09→21:26)
--- NOTE | 2020-03-01 13:44 | Consultation ---
DATE OF CONSULTATION: 03/01/2020 HISTORY OF PRESENT ILLNESS: This is a 49-year-old unfortunate male who was transferred from a [facility] due to fever and congestion. The patient suffered a fall earlier this year resulting in quadriplegia. He is well known also to have developmental delay and cerebral palsy. The patient is COVID negative few days ago. The patient had bilateral pneumonia, he was placed on nonrebreather mask, currently he is on Ventimask and looking better. He had chronic tracheostomy. PAST MEDICAL HISTORY: Diabetes mellitus, cerebral palsy, cord transection, quadriplegia, hypertension. CURRENT MEDICATIONS: Klonopin, DuoNebs, Risperdal, vancomycin, Zosyn. REVIEW OF SYSTEMS: Not obtainable. PHYSICAL EXAMINATION: GENERAL: Reveals 49-year-old male. HEENT: Unremarkable. Tracheostomy site is clean. CHEST: Clear breath sounds bilaterally with normal heart sounds. ABDOMEN: Soft. EXTREMITIES: There is no edema. VITAL SIGNS: O2 saturation 100% on Venitmask with 35% FiO2, blood pressure 101/60, heart rate 104, respirations 18. LABORATORY DATA: White count 24, hemoglobin 9.8, glucose 114. ABG, pH 7.48, pCO2 36, pO2 189. X-ray chest shows left basilar pneumonia. IMPRESSION: 1. USP acquired pneumonia. 2. Developmental delay. 3. History of quadriplegia. 4. Chronic tracheostomy. DISCUSSION: We will resume Zosyn. Continue oxygen. We will titrate down breathing treatments. Agree with vancomycin. We will follow. Yovany Scott M.D. DR: Luanne JOB#: [id number] CC:
[2020-03-01 16:00] VITALS: BP 117/68
--- NOTE | 2020-03-01 16:43 | Surgery Progress Note ---
Surgery Progress Note Subjective Symptoms: tolerating diet, passing flatus, BM, other Objective Last 24 Hour Vital Signs Date Time Temp Pulse Resp B/P (MAP) Pulse Ox O2 Delivery O2 Flow Rate FiO2 03/01/20 12:00 80 03/01/20 12:00 98.3 98 19 110/69 (83) 97 03/01/20 08:46 Venturi Mask 4.0 03/01/20 08:36 98.0 109 18 109/63 (78) 100 03/01/20 08:00 85 03/01/20 07:52 88 20 100 Venturi Mask 6.0 35 85 18 100 03/01/20 04:00 97.9 96 22 119/73 (88) 100 03/01/20 04:00 91 03/01/20 00:39 105 20 100 Venturi Mask 6.0 35 106 20 99 03/01/20 00:00 96.6 107 24 117/72 (87) 100 03/01/20 00:00 101 02/29/20 21:00 Venturi Mask 6.0 02/29/20 20:31 104 20 100 Venturi Mask 6.0 35 102 20 98 02/29/20 20:00 90 02/29/20 20:00 97.5 92 22 119/70 (86) 100 I&O Intake and Output 02/29/20 03/01/20 19:00 07:00 Intake Total 30 ml 480 ml Output Total 1200 ml 400 ml Balance -1170 ml 80 ml Intake Free Water 150 ml Tube Feeding 30 ml 330 ml Output Urine Total 1200 ml 400 ml Dressing: saturated Cardiovascular: RSR Respiratory: decreased breath sounds Abdomen: soft, non-tender, present bowel sounds Extremities: no edema, no tenderness, no cyanosis Laboratory Tests Test 02/29/20 23:48 03/01/20 10:00 POC Whole Blood Glucose 114 MG/DL (74-106) H White Blood Count 15.6 K/UL (4.8-10.8) H Red Blood Count 3.46 M/UL (4.70-6.10) L Hemoglobin 9.7 G/DL (14.2-18.0) L Hematocrit 30.5 % (42.0-52.0) L Mean Corpuscular Volume 88 FL (80-99) Mean Corpuscular Hemoglobin 28.0 PG (27.0-31.0) Mean Corpuscular Hemoglobin Concent 31.7 G/DL (32.0-36.0) L Red Cell Distribution Width 15.6 % (11.6-14.8) H Platelet Count 240 K/UL (150-450) Mean Platelet Volume 7.4 FL (6.5-10.1) Neutrophils (%) (Auto) % (45.0-75.0) Lymphocytes (%) (Auto) % (20.0-45.0) Monocytes (%) (Auto) % (1.0-10.0) Eosinophils (%) (Auto) % (0.0-3.0) Basophils (%) (Auto) % (0.0-2.0) Differential Total Cells Counted 100 Neutrophils % (Manual) 87 % (45-75) H Lymphocytes % (Manual) 5 % (20-45) L Monocytes % (Manual) 4 % (1-10) Eosinophils % (Manual) 3 % (0-3) Basophils % (Manual) 1 % (0-2) Band Neutrophils 0 % (0-8) Platelet Estimate Adequate Platelet Morphology Normal Hypochromasia 2+ Anisocytosis 1+ Sodium Level 146 MMOL/L (136-145) H Potassium Level 3.9 MMOL/L (3.5-5.1) Chloride Level 110 MMOL/L (98-107) H Carbon Dioxide Level 28 MMOL/L (21-32) Anion Gap 8 mmol/L (5-15) Blood Urea Nitrogen 9 mg/dL (7-18) Creatinine 0.3 MG/DL (0.55-1.30) L Estimat Glomerular Filtration Rate > 60 mL/min (>60) Glucose Level 125 MG/DL (74-106) H Calcium Level 8.3 MG/DL (8.5-10.1) L Total Bilirubin 0.4 MG/DL (0.2-1.0) Aspartate Amino Transf (AST/SGOT) 18 U/L (15-37) Alanine Aminotransferase (ALT/SGPT) 12 U/L (12-78) Alkaline Phosphatase 61 U/L (46-116) Total Protein 7.2 G/DL (6.4-8.2) Albumin 2.2 G/DL (3.4-5.0) L Globulin 5.0 g/dL Albumin/Globulin Ratio 0.4 (1.0-2.7) L Plan Problems: (1) UTI (urinary tract infection) (2) Pneumonia (3) Respiratory distress Assessment & Plan: Lungs: Low lung volumes with bronchovascular crowding. Retrocardiac and left base atelectasis or consolidation. Pleural space: No pleural effusion or pneumothorax. Heart: Unremarkable. No cardiomegaly. Mediastinum: Unremarkable. Bones/joints: No acute abnormality IMPRESSION: 1. Low lung volumes with bronchovascular crowding. 2. Retrocardiac and left base atelectasis or consolidation. 3. Otherwise no acute cardiopulmonary disease. 4. If there is continued concern, recommend frontal and lateral chest radiographs or CT. (4) SOB (shortness of breath) (5) Protein-calorie malnutrition, severe (6) Stage 4 skin ulcer of sacral region Assessment & Plan: Patient identified admission to have significant low body weight BMI 19 abnormal labs and a stage IV sacral decubitus ulcer. Ulcer was identified to likely have prior intervention. Bone is palpable. There is granulation tissue identified with minimal tunneling. Periwound is intact and chronically scarred. No significant maceration identified no purulent drainage no foul odor. Wound washed and dressings applied. Care plan initiated. Nutritional optimization, local care, air mattress, turn every 2 hours, offload pressure. Will follow with recommendations. Thank you for let me participate in patient's care Yaniv Eden Mar 01, 2020 16:43
[2020-03-01 20:00] VITALS: BP 136/72
[2020-03-02] VITALS: BP 131/75
[2020-03-02] MEDS: Albuterol/Ipratropium 3ml neb HHN SCH ×4 (00:33→20:10)
[2020-03-02] MEDS: Vancomycin 750mg/NS 275ml IVPB SCH ×2 (02:15)
[2020-03-02 04:00] VITALS: BP 128/63
[2020-03-02] MEDS: Piperacillin/Tazobactam 3.375 GM in NS 110 ML IVPB SCH (05:33)
[2020-03-02] MEDS: NovoLOG Insulin Flexpen SUBQ SCH ×4 (05:33→17:29)
[2020-03-02] MEDS: NS w/KCl 20mEq 1000ml 1,000 ML IV SCH ×3 (06:15→23:06)
--- NOTE | 2020-03-02 07:05 | General Progress Note ---
Assessment/Plan Problem List: (1) Hospital-acquired pneumonia ICD Codes: J18.9 - Pneumonia, unspecified organism; Y95 - Nosocomial condition SNOMED: 789168249 (2) Pneumonia ICD Codes: J18.9 - Pneumonia, unspecified organism SNOMED: 885196874 Qualifiers: Qualified Codes: J18.9 - Pneumonia, unspecified organism (3) SOB (shortness of breath) ICD Codes: R06.02 - Shortness of breath SNOMED: 073339277 (4) Stage 4 skin ulcer of sacral region ICD Codes: L98.429 - Non-pressure chronic ulcer of back with unspecified severity SNOMED: 27028039, 805059400 (5) Protein-calorie malnutrition, severe ICD Codes: E43 - Unspecified severe protein-calorie malnutrition SNOMED: 882277627, 023872675, 690259350 Status: stable, progressing Assessment/Plan: cont iv abx follow up cultures monitor cxr ivf gt feeds- increased dvt/stress ulcer prophylaxis turn q2 wound care cont resp care suctioning wean fio2 wound care per surgery Subjective ROS Limited/Unobtainable: Yes Constitutional: Reports: malaise, weakness HEENT: Reports: no symptoms Cardiovascular: Reports: no symptoms Respiratory: Reports: cough, SOB at rest Gastrointestinal/Abdominal: Reports: difficulty swallowing Genitourinary: Reports: no symptoms Neurologic/Psychiatric: Reports: pre-existing deficit Endocrine: Reports: no symptoms Hematologic/Lymphatic: Reports: no symptoms Allergies: Coded Allergies: No Known Allergies (Unverified , 02/29/20) All Systems: reviewed and negative except above Subjective improving. decreased o2 requirements. on nasal cannula at 1L. no fevers. Ucx gnr. tolerating feeds. Objective Last 24 Hour Vital Signs Date Time Temp Pulse Resp B/P (MAP) Pulse Ox O2 Delivery O2 Flow Rate FiO2 03/02/20 04:00 98.3 74 23 128/63 (84) 96 03/02/20 04:00 90 03/02/20 00:33 77 18 100 Nasal Cannula 2.0 28 81 18 98 03/02/20 00:00 70 03/02/20 00:00 98.0 74 24 131/75 (93) 99 03/01/20 21:00 Nasal Cannula 1.0 03/01/20 20:10 75 18 100 Nasal Cannula 2.0 28 78 18 99 03/01/20 20:00 97.3 68 24 136/72 (93) 100 03/01/20 20:00 69 03/01/20 16:00 98.9 89 19 117/68 (84) 98 03/01/20 16:00 89 03/01/20 15:00 Nasal Cannula 2.0 03/01/20 12:00 80 03/01/20 12:00 98.3 98 19 110/69 (83) 97 03/01/20 08:46 Venturi Mask 4.0 03/01/20 08:36 98.0 109 18 109/63 (78) 100 03/01/20 08:00 85 03/01/20 07:52 88 20 100 Venturi Mask 6.0 35 85 18 100 Intake and Output 03/01/20 03/02/20 19:00 07:00 Intake Total 600 ml 1525 ml Output Total 1200 ml Balance -600 ml 1525 ml Intake Free Water 140 ml 195 ml IV Total 100 ml 1000 ml Tube Feeding 360 ml 330 ml Output Urine Total 1200 ml Laboratory Tests 03/01/20 10:00: White Blood Count 15.6H, Red Blood Count 3.46L, Hemoglobin 9.7L, Hematocrit 30.5L, Mean Corpuscular Volume 88, Mean Corpuscular Hemoglobin 28.0, Mean Corpuscular Hemoglobin Concent 31.7L, Red Cell Distribution Width 15.6H, Platelet Count 240, Mean Platelet Volume 7.4, Neutrophils (%) (Auto) , Lymphocytes (%) (Auto) , Monocytes (%) (Auto) , Eosinophils (%) (Auto) , Basophils (%) (Auto) , Differential Total Cells Counted 100, Neutrophils % ( Manual) 87H, Lymphocytes % (Manual) 5L, Monocytes % (Manual) 4, Eosinophils % ( Manual) 3, Basophils % (Manual) 1, Band Neutrophils 0, Platelet Estimate Adequate, Platelet Morphology Normal, Hypochromasia 2+, Anisocytosis 1+, Sodium Level 146H, Potassium Level 3.9, Chloride Level 110H, Carbon Dioxide Level 28, Anion Gap 8, Blood Urea Nitrogen 9, Creatinine 0.3L, Estimat Glomerular Filtration Rate > 60, Glucose Level 125H, Calcium Level 8.3L, Total Bilirubin 0.4, Aspartate Amino Transf (AST/SGOT) 18, Alanine Aminotransferase (ALT/SGPT) 12, Alkaline Phosphatase 61, Total Protein 7.2, Albumin 2.2L, Globulin 5.0, Albumin/Globulin Ratio 0.4L 03/01/20 16:45: Vancomycin Level Trough 8.5 03/02/20 05:23: POC Whole Blood Glucose 104 Height (Feet): 5 Height (Inches): 4.00 Weight (Pounds): 114 Objective General Appearance: WD/WN, lethargic, confused, thin EENT: normal ENT inspection Neck: non-tender, normal alignment, supple Cardiovascular: normal peripheral pulses, normal rate, regular rhythm Respiratory/Chest: chest wall non-tender, rhonchi - bilaterally Abdomen: normal bowel sounds, non tender, soft, no organomegaly Edema: no edema noted Arm (L), no edema noted Arm (R) Neurologic: disoriented, unresponsive, aphasia Lymphatic: normal anterior cervical (L), normal anterior cervical (R) Dayne Liriano MD Mar 02, 2020 07:05
[2020-03-02 08:00] VITALS: BP 122/69
[2020-03-02] MEDS: Heparin 5000 units/ml inj SUBQ SCH ×2 (09:04→20:53)
[2020-03-02] MEDS ORDERED: Vancomycin 750 MG in NS 275 ML IVPB SCH (09:45)
--- NOTE | 2020-03-02 10:33 | General Progress Note ---
Advance Care Planning Advance Care Planning Advance Care Planning Date of Discussion: A [id number] discussion with the patient regarding the patient's advanced care planning took place during this hospitalization on the above date. The discussion included the explanation and discussion of advance directives and associated forms/documents, as well as the patient's current code status. We also discussed at length the patient's medical conditions (both acute and chronic), general prognosis, treatment options, and goals of care. The following summarizes the discussion: Advance Care Planning/Goals of Care: - Will attempt to fill out an AD and/or POLST with the patient prior to discharge, if not already completed - Continue current evaluation and management of any acute and chronic medical issues - Will continue to support the patient/family - Will continue to discuss both short- and long-term goals of care DPOA-HC/Surrogate Decision Maker: None currently appointed Code Status: DNR Advanced Care Planning Forms/Documents Completed: Deferred until later encounter/visit A total of 30 minutes was spent on this discussion, including counseling, answering questions, and completing, if any, pertinent advanced care planning forms/documents. Time of note may not reflect time of encounter. Yovany Scott MD Mar 02, 2020 10:33
--- NOTE | 2020-03-02 10:34 | Consultation ---
Consult Note Consult Note Additional 30 minutes of non face to face time was spent in review of medical records, arrangement of care and discussion with consultants involved with care Yovany Scott MD Mar 02, 2020 10:34
--- NOTE | 2020-03-02 10:51 | Pulmonology Progress Note ---
Subjective ROS Limited/Unobtainable: Yes Interval Events: None new reported Constitutional: Reports: no symptoms HEENT: Repors: no symptoms Respiratory: Reports: no symptoms Cardiovascular: Reports: no symptoms Allergies: Coded Allergies: No Known Allergies (Unverified , 02/29/20) All Systems: reviewed and negative except above Objective Last 24 Hour Vital Signs Date Time Temp Pulse Resp B/P (MAP) Pulse Ox O2 Delivery O2 Flow Rate FiO2 03/02/20 09:00 Nasal Cannula 1.0 03/02/20 08:00 98.3 91 19 122/69 (86) 97 03/02/20 07:29 76 18 100 Nasal Cannula 2.0 28 76 18 98 03/02/20 04:00 98.3 74 23 128/63 (84) 96 03/02/20 04:00 90 03/02/20 00:33 77 18 100 Nasal Cannula 2.0 28 81 18 98 03/02/20 00:00 70 03/02/20 00:00 98.0 74 24 131/75 (93) 99 03/01/20 21:00 Nasal Cannula 1.0 03/01/20 20:10 75 18 100 Nasal Cannula 2.0 28 78 18 99 03/01/20 20:00 97.3 68 24 136/72 (93) 100 03/01/20 20:00 69 03/01/20 16:00 98.9 89 19 117/68 (84) 98 03/01/20 16:00 89 03/01/20 15:00 Nasal Cannula 2.0 03/01/20 12:00 80 03/01/20 12:00 98.3 98 19 110/69 (83) 97 Intake and Output 03/01/20 03/02/20 19:00 07:00 Intake Total 600 ml 1525 ml Output Total 1200 ml Balance -600 ml 1525 ml Intake Free Water 140 ml 195 ml IV Total 100 ml 1000 ml Tube Feeding 360 ml 330 ml Output Urine Total 1200 ml General Appearance: no acute distress HEENT: normocephalic, mucous membranes moist Respiratory: chest wall non-tender, lungs clear Cardiovascular: normal peripheral pulses, normal rate Abdomen: normal bowel sounds Microbiology Date/Time Source Procedure Growth Status 02/29/20 00:10 Blood Blood Culture - Preliminary NO GROWTH AFTER 48 HOURS Resulted 02/28/20 23:55 Blood Blood Culture - Preliminary NO GROWTH AFTER 48 HOURS Resulted 02/29/20 06:24 Sputum Gram Stain Pending Resulted 02/29/20 06:24 Sputum Culture - Final Staphylococcus Aureus - Mrsa Resulted 02/29/20 00:30 Nasopharynx SARS-CoV-2 RdRp Gene Assay - Final Complete 02/29/20 00:10 Urine,Clean Catch Urine Culture - Preliminary A.[email or web address] Complx - Mdr Resulted 03/01/20 08:00 Rectum Received Laboratory Tests 03/01/20 16:45: Vancomycin Level Trough 8.5 03/02/20 05:23: POC Whole Blood Glucose 104 Current Medications Medications (Trade) Dose Ordered Sig/Mohan Route PRN Reason Start Time Stop Time Status Last Admin Dose Admin Acetaminophen (Tylenol) 650 mg Q4H PRN ORAL fever/bright 03/02/20 06:15 03/30/20 02:14 Albuterol/ Ipratropium (Albuterol/ Ipratropium) 3 ml Q6HRT HHN 03/02/20 07:00 03/05/20 06:59 03/02/20 07:27 Clonazepam (KlonoPIN) 1 mg BEDTIME ORAL 03/02/20 21:00 03/07/20 20:59 Dextrose (Dextrose 50%) 25 ml Q30M PRN IV Hypoglycemia 03/02/20 06:15 05/29/20 02:14 Dextrose (Dextrose 50%) 50 ml Q30M PRN IV Hypoglycemia 03/02/20 06:15 05/29/20 02:14 Heparin Sodium (Porcine) (Heparin 5000 units/ml) 5,000 units EVERY 12 HOURS SUBQ 03/02/20 09:00 04/14/20 08:59 03/02/20 09:04 Insulin Aspart (NovoLOG) EVERY 6 HOURS SUBQ 03/02/20 12:00 05/29/20 06:29 Piperacillin Sod/ Tazobactam Sod 3.375 gm/Sodium Chloride 110 ml @ 27.5 mls/hr EVERY 8 HOURS IVPB 03/02/20 14:00 03/06/20 13:59 Potassium Chloride/Sodium Chloride 1,000 ml @ 100 mls/hr Q10H IV 03/02/20 06:15 03/30/20 06:59 Risperidone (RisperDAL) 1 mg BEDTIME ORAL 03/02/20 21:00 04/14/20 20:59 Vancomycin HCl ([facility]anco pharmacy to dose) 1 ea DAILY PRN MISC Per rx protocol 03/02/20 09:00 03/30/20 02:14 Vancomycin HCl 750 mg/Sodium Chloride 275 ml @ 183.333 mls/hr Q8H IVPB 03/02/20 09:45 03/05/20 17:59 03/02/20 09:03 Assessment/Plan Assessment/Plan IMPRESSION: 1. long term acquired pneumonia. 2. Developmental delay. 3. History of quadriplegia. 4. Chronic tracheostomy. DISCUSSION: Continue Zosyn. Continue oxygen. Continue breathing treatments. Agree with vancomycin. I will follow. Jeaneth Bunn Omar Syed MD Mar 02, 2020 10:51
[2020-03-02 12:00] VITALS: BP 126/79
[2020-03-02] MEDS: Minocycline HCl 50mg cap ORAL SCH ×2 (12:40→20:47)
[2020-03-02] MEDS ORDERED: Piperacillin/Tazobactam 3.375 GM in NS 110 ML IVPB SCH (14:00)
[2020-03-02 16:00] VITALS: BP 129/83
--- NOTE | 2020-03-02 16:58 | Surgery Progress Note ---
Surgery Progress Note Subjective Additional Comments no acute events labs improved exam improved no n/v/f/c Objective Last 24 Hour Vital Signs Date Time Temp Pulse Resp B/P (MAP) Pulse Ox O2 Delivery O2 Flow Rate FiO2 03/02/20 16:00 98.9 89 19 129/83 (98) 95 03/02/20 12:23 75 18 100 Nasal Cannula 2.0 28 78 18 99 03/02/20 12:00 97.5 87 19 126/79 (95) 98 03/02/20 09:00 Nasal Cannula 1.0 03/02/20 08:00 98.3 91 19 122/69 (86) 97 03/02/20 07:29 76 18 100 Nasal Cannula 2.0 28 76 18 98 03/02/20 04:00 98.3 74 23 128/63 (84) 96 03/02/20 04:00 90 03/02/20 00:33 77 18 100 Nasal Cannula 2.0 28 81 18 98 03/02/20 00:00 70 03/02/20 00:00 98.0 74 24 131/75 (93) 99 03/01/20 21:00 Nasal Cannula 1.0 03/01/20 20:10 75 18 100 Nasal Cannula 2.0 28 78 18 99 03/01/20 20:00 97.3 68 24 136/72 (93) 100 03/01/20 20:00 69 I&O Intake and Output 03/01/20 03/02/20 19:00 07:00 Intake Total 600 ml 1525 ml Output Total 1200 ml Balance -600 ml 1525 ml Intake Free Water 140 ml 195 ml IV Total 100 ml 1000 ml Tube Feeding 360 ml 330 ml Output Urine Total 1200 ml Dressing: other Wound: other Cardiovascular: RSR Respiratory: decreased breath sounds Abdomen: soft, non-tender, present bowel sounds Extremities: no tenderness, no cyanosis Laboratory Tests Test 03/02/20 05:23 03/02/20 11:15 POC Whole Blood Glucose 104 MG/DL (74-106) Vancomycin Level Trough 28.6 ug/mL (5.0-12.0) H Plan Problems: (1) UTI (urinary tract infection) (2) Pneumonia (3) Respiratory distress Assessment & Plan: Lungs: Low lung volumes with bronchovascular crowding. Retrocardiac and left base atelectasis or consolidation. Pleural space: No pleural effusion or pneumothorax. Heart: Unremarkable. No cardiomegaly. Mediastinum: Unremarkable. Bones/joints: No acute abnormality IMPRESSION: 1. Low lung volumes with bronchovascular crowding. 2. Retrocardiac and left base atelectasis or consolidation. 3. Otherwise no acute cardiopulmonary disease. 4. If there is continued concern, recommend frontal and lateral chest radiographs or CT. (4) SOB (shortness of breath) (5) Protein-calorie malnutrition, severe (6) Stage 4 skin ulcer of sacral region Assessment & Plan: Patient identified admission to have significant low body weight BMI 19 abnormal labs and a stage IV sacral decubitus ulcer. Ulcer was identified to likely have prior intervention. Bone is palpable. There is granulation tissue identified with minimal tunneling. Periwound is intact and chronically scarred. No significant maceration identified no purulent drainage no foul odor. Wound washed and dressings applied. Care plan initiated. Nutritional optimization, local care, air mattress, turn every 2 hours, offload pressure. Will follow with recommendations. Thank you for let me participate in patient's care Yaniv Eden Mar 02, 2020 16:58
[2020-03-02] MEDS: Vancomycin 750 MG in NS 275 ML IVPB SCH (17:17)
[2020-03-02 20:00] VITALS: BP 132/81
[2020-03-03] VITALS: BP 115/75
--- NOTE | 2020-03-03 00:20 | Cardiology Progress Note ---
Subjective DATE OF SERVICE: Mar 02, 2020 Still withdrawn and lethargic. Congested but less hypoxic and SOB. Remains on IV abx -cultures noted Objective Last 24 Hour Vital Signs Date Time Temp Pulse Resp B/P (MAP) Pulse Ox O2 Delivery O2 Flow Rate FiO2 03/02/20 21:00 Nasal Cannula 1.0 03/02/20 20:10 75 18 100 Nasal Cannula 2.0 28 72 18 98 03/02/20 20:00 97.3 82 20 132/81 (98) 96 03/02/20 16:00 98.9 89 19 129/83 (98) 95 03/02/20 12:23 75 18 100 Nasal Cannula 2.0 28 78 18 99 03/02/20 12:00 97.5 87 19 126/79 (95) 98 03/02/20 09:00 Nasal Cannula 1.0 03/02/20 08:00 98.3 91 19 122/69 (86) 97 03/02/20 07:29 76 18 100 Nasal Cannula 2.0 28 76 18 98 03/02/20 04:00 98.3 74 23 128/63 (84) 96 03/02/20 04:00 90 03/02/20 00:33 77 18 100 Nasal Cannula 2.0 28 81 18 98 ROS: no change from my dictation of 02/28/20 HEENT: normal ENT inspection RHYTHM: ST, PACs LUNGS: bilat. rhonchi and rales CARDIAC: regular rhythm, normal S1 and S2, tachycardia ABDOMEN: normal bowel sounds, non tender, soft, no organomegaly, no mass EXTREMITIES: non-tender, No edema Laboratory Tests Test 03/02/20 05:23 03/02/20 11:15 POC Whole Blood Glucose 104 MG/DL (74-106) Vancomycin Level Trough 28.6 ug/mL (5.0-12.0) H Microbiology Date/Time Source Procedure Growth Status 02/29/20 06:24 Sputum Gram Stain Pending Resulted 02/29/20 06:24 Sputum Culture - Final Staphylococcus Aureus - Mrsa Resulted 02/29/20 00:30 Nasopharynx SARS-CoV-2 RdRp Gene Assay - Final Complete 03/01/20 08:00 Rectum Received Assessment/Plan Assessment/Plan Healthcare associated MRSA PNA Aspiration Severe sepsis Sinus tachycardia Acute myocardial ischemia Leukocytosis Hypovolemia/dehydration Stage 4 sacral decubitus Severe protein/calorie malnutrition MDR Acenitobacter UTI IVF desk monitor discont'd Antimicrobials per Dr Bonds Respiratory hygiene/taper O2 DVT prophyl Skin/wound care Protein suppl Delio Rain MD Mar 03, 2020 00:20
[2020-03-03] MEDS: Albuterol/Ipratropium 3ml neb HHN SCH ×4 (00:49→19:09)
[2020-03-03] MEDS: Vancomycin 750 MG in NS 275 ML IVPB SCH ×3 (01:46→18:27)
[2020-03-03 04:00] VITALS: BP 114/74
[2020-03-03] MEDS: NovoLOG Insulin Flexpen SUBQ SCH ×5 (06:00→23:31)
[2020-03-03 06:33] LABS: BASOPHILS % (AUTO) 1.2 % (0.0-2.0); EOSINOPHILS % (AUTO) 1.7 % (0.0-3.0); HEMOGLOBIN 9.8 G/DL (14.2-18.0); LYMPHOCYTES % (AUTO) 18.7 % (20.0-45.0); MEAN CORPUSCULAR VOLUME 86 FL (80-99); MONOCYTES % (AUTO) 6.2 % (1.0-10.0); NEUTROPHILS % (AUTO) 72.2 % (45.0-75.0); PLATELET COUNT 279 K/UL (150-450); RED CELL DISTRIBUTION WIDTH 14.9 % (11.6-14.8); WHITE BLOOD COUNT 7.6 K/UL (4.8-10.8)
[2020-03-03 06:50] LABS: ALANINE AMINOTRANSFERASE 13 U/L (12-78); ALBUMIN 2.2 G/DL (3.4-5.0); ALBUMIN/GLOBULIN RATIO 0.5 (1.0-2.7); ALKALINE PHOSPHATASE 57 U/L (46-116); ANION GAP 8 mmol/L (5-15); ASPARTATE AMINO TRANSFERASE 14 U/L (15-37); BILIRUBIN,TOTAL 0.4 MG/DL (0.2-1.0); BLOOD UREA NITROGEN 8 mg/dL (7-18); CALCIUM 8.1 MG/DL (8.5-10.1); CARBON DIOXIDE 29 MMOL/L (21-32); CHLORIDE 110 MMOL/L (98-107); CREATININE 0.4 MG/DL (0.55-1.30); POTASSIUM 3.3 MMOL/L (3.5-5.1); SODIUM 147 MMOL/L (136-145)
[2020-03-03 08:00] VITALS: BP 127/81
--- NOTE | 2020-03-03 08:00 | Consultation ---
DATE OF CONSULTATION: 03/02/2020 INFECTIOUS DISEASES CONSULTATION CONSULTING PHYSICIAN: Lakhwinder Bonds MD. REFERRING PHYSICIAN: Delio Rain MD. REASON FOR CONSULTATION: Urinary tract infection. HISTORY OF PRESENTING ILLNESS: This is a 49-year-old gentleman with history of diabetes, hypertension, cerebral palsy, hyperlipidemia who was transferred from a assisted facility with hypoxemia. Chest x-ray showed left base infiltrate. He was found to have a urinary tract infection. An Infectious Diseases consultation has been obtained for antibiotics. PAST MEDICAL HISTORY: 1. History of diabetes. 2. Hypertension. 3. Hyperlipidemia. 4. Cerebral palsy. 5. Status post G-tube placement. SOCIAL HISTORY: He does not smoke, drink, or use drugs. FAMILY HISTORY: Unknown. REVIEW OF SYSTEMS: Unable to obtain currently. MEDICATIONS: As an inpatient he is on clonazepam, Risperdal, Zosyn, insulin, vancomycin, subcutaneous heparin, albuterol ipratropium, potassium. ALLERGIES: No known drug allergies. PHYSICAL EXAMINATION: VITAL SIGNS: Temperature of 98.3, T-max of 98.9, pulse of 91, respiratory rate 19, blood pressure 122/69, O2 saturation of 97%. HEENT: Pupils are equally reactive to light and accommodation. Mouth appears clean without thrush. NECK: Supple. No adenopathy. No JVD. CARDIOVASCULAR: Regular rate and rhythm. No murmurs. LUNGS: Clear to auscultation bilaterally. No crackles. No wheezes. ABDOMEN: Soft, nontender. No organomegaly. G-tube site appears clean. EXTREMITIES: No cyanosis, no clubbing, no edema. LABORATORY AND DIAGNOSTIC DATA: White count of 15.6 today, white count of 24.9 yesterday, hemoglobin 9.7, hematocrit 30.5, MCV 88, platelet count of 240 with neutrophils of 87%. Sodium 146, potassium 3.9, chloride 110, bicarb 28, BUN 9, creatinine 0.3, glucose 125, calcium 8.3. Total bilirubin 0.4, AST 18, ALT 12, alkaline phosphatase 61, total protein 7.2, albumin 2.2. Amylase of 69. C-reactive protein of 13.1. Total bilirubin 0.6, AST 24, ALT 13, alkaline phosphatase 73, LDH 149. CK 71, CK-MB 1.5. UA showing 20 to 30 white cells. Sputum cultures growing MRSA. COVID-19 test is negative. Urine culture growing Acinetobacter, gallegos resistant. Blood cultures are negative from 02/29/2020. Chest x-ray is showing retrocardiac and left base atelectasis or consolidation, bronchovascular crowding noted. ASSESSMENT: This is a 49-year-old gentleman with history of diabetes, hypertension, cerebral palsy, hyperlipidemia who came in from a assisted facility with hypoxia and is found to have: 1. MRSA pneumonia. 2. Acinetobacter urinary tract infection 3. Diabetes. 4. Hypertension. 5. Leukocytosis is improving. 6. Cerebral palsy. PLAN: 1. Continue IV vancomycin. 2. Discontinue Zosyn. 3. We will start the patient on minocycline. 4. We will follow up cultures and adjust antibiotics accordingly. I would like to thank, Dr. Rain, for this consultation. Lakhwinder Bonds M.D. DR: Fannie JOB#: [id number] CC: Delio Rain M.D.
[2020-03-03] MEDS: Minocycline HCl 50mg cap ORAL SCH ×2 (09:06→20:36)
[2020-03-03] MEDS: Heparin 5000 units/ml inj SUBQ SCH ×2 (09:07→20:38)
--- NOTE | 2020-03-03 09:18 | General Progress Note ---
Assessment/Plan Problem List: (1) Hospital-acquired pneumonia ICD Codes: J18.9 - Pneumonia, unspecified organism; Y95 - Nosocomial condition SNOMED: 657448607 (2) Pneumonia ICD Codes: J18.9 - Pneumonia, unspecified organism SNOMED: 512342347 Qualifiers: Qualified Codes: J18.9 - Pneumonia, unspecified organism (3) SOB (shortness of breath) ICD Codes: R06.02 - Shortness of breath SNOMED: 159985799 (4) Stage 4 skin ulcer of sacral region ICD Codes: L98.429 - Non-pressure chronic ulcer of back with unspecified severity SNOMED: 42714177, 793740294 (5) Protein-calorie malnutrition, severe ICD Codes: E43 - Unspecified severe protein-calorie malnutrition SNOMED: 207257285, 513728032, 472195452 Status: stable, progressing Assessment/Plan: cont iv abx per id monitor cxr ivf adjusted gt feeds- increased dvt/stress ulcer prophylaxis turn q2 wound care cont resp care artificial tears suctioning wean fio2 wound care per surgery Subjective ROS Limited/Unobtainable: No Constitutional: Reports: malaise, weakness HEENT: Reports: no symptoms Cardiovascular: Reports: no symptoms Respiratory: Reports: cough, shortness of breath Gastrointestinal/Abdominal: Reports: difficulty swallowing Genitourinary: Reports: no symptoms Neurologic/Psychiatric: Reports: no symptoms Endocrine: Reports: no symptoms Hematologic/Lymphatic: Reports: anemia Allergies: Coded Allergies: No Known Allergies (Unverified , 02/29/20) All Systems: reviewed and negative except above Subjective more alert. c/o dry eyes. ID noted. abx adjusted. remains on nasal cannula. no fever or chills. no sob. minimal cough/congestion. labs reviewed. Na trending up. low k Objective Last 24 Hour Vital Signs Date Time Temp Pulse Resp B/P (MAP) Pulse Ox O2 Delivery O2 Flow Rate FiO2 03/03/20 08:24 79 18 100 Nasal Cannula 2.0 28 76 20 98 03/03/20 04:00 97.2 78 18 114/74 (87) 100 03/03/20 00:49 72 18 99 Nasal Cannula 2.0 28 70 20 97 03/03/20 00:00 98.1 77 16 115/75 (88) 99 03/02/20 21:00 Nasal Cannula 1.0 03/02/20 20:10 75 18 100 Nasal Cannula 2.0 28 72 18 98 03/02/20 20:00 97.3 82 20 132/81 (98) 96 03/02/20 16:00 98.9 89 19 129/83 (98) 95 03/02/20 12:23 75 18 100 Nasal Cannula 2.0 28 78 18 99 03/02/20 12:00 97.5 87 19 126/79 (95) 98 Intake and Output 03/02/20 03/03/20 19:00 07:00 Intake Total 680 ml 900 ml Output Total 2100 ml 2200 ml Balance -1420 ml -1300 ml Intake Free Water 100 ml 250 ml IV Total 400 ml Tube Feeding 580 ml 250 ml Output Urine Total 2100 ml 2200 ml Laboratory Tests 03/02/20 11:15: Vancomycin Level Trough 28.6H 03/03/20 05:10: White Blood Count 7.6, Red Blood Count 3.50L, Hemoglobin 9.8L, Hematocrit 30.0L , Mean Corpuscular Volume 86, Mean Corpuscular Hemoglobin 28.1, Mean Corpuscular Hemoglobin Concent 32.7, Red Cell Distribution Width 14.9H, Platelet Count 279, Mean Platelet Volume 6.5, Neutrophils (%) (Auto) 72.2, Lymphocytes (%) (Auto) 18.7L, Monocytes (%) (Auto) 6.2, Eosinophils (%) (Auto) 1.7, Basophils (%) (Auto) 1.2, Sodium Level 147H, Potassium Level 3.3L, Chloride Level 110H, Carbon Dioxide Level 29, Anion Gap 8, Blood Urea Nitrogen 8 , Creatinine 0.4L, Estimat Glomerular Filtration Rate > 60, Glucose Level 113H, Calcium Level 8.1L, Total Bilirubin 0.4, Aspartate Amino Transf (AST/SGOT) 14L, Alanine Aminotransferase (ALT/SGPT) 13, Alkaline Phosphatase 57, Total Protein 7.0, Albumin 2.2L, Globulin 4.8, Albumin/Globulin Ratio 0.5L Height (Feet): 5 Height (Inches): 4.00 Weight (Pounds): 114 Objective General Appearance: WD/WN, lethargic, confused, thin EENT: normal ENT inspection Neck: non-tender, normal alignment, supple Cardiovascular: normal peripheral pulses, normal rate, regular rhythm Respiratory/Chest: chest wall non-tender, rhonchi - bilaterally Abdomen: normal bowel sounds, non tender, soft, no organomegaly Edema: no edema noted Arm (L), no edema noted Arm (R) Neurologic: disoriented, unresponsive, aphasia Lymphatic: normal anterior cervical (L), normal anterior cervical (R) Dayne Liriano MD Mar 03, 2020 09:18
[2020-03-03] MEDS: D5W w/KCl 20mEq 1,000 ML IV SCH ×2 (09:52→23:30)
--- NOTE | 2020-03-03 10:19 | Pulmonology Progress Note ---
Subjective ROS Limited/Unobtainable: No Interval Events: None new reported Constitutional: Reports: no symptoms HEENT: Repors: no symptoms Respiratory: Reports: no symptoms Cardiovascular: Reports: no symptoms Allergies: Coded Allergies: No Known Allergies (Unverified , 02/29/20) All Systems: reviewed and negative except above Objective Last 24 Hour Vital Signs Date Time Temp Pulse Resp B/P (MAP) Pulse Ox O2 Delivery O2 Flow Rate FiO2 03/03/20 09:00 Nasal Cannula 1.0 03/03/20 08:24 79 18 100 Nasal Cannula 2.0 28 76 20 98 03/03/20 08:00 97.3 72 18 127/81 (96) 100 03/03/20 04:00 97.2 78 18 114/74 (87) 100 03/03/20 00:49 72 18 99 Nasal Cannula 2.0 28 70 20 97 03/03/20 00:00 98.1 77 16 115/75 (88) 99 03/02/20 21:00 Nasal Cannula 1.0 03/02/20 20:10 75 18 100 Nasal Cannula 2.0 28 72 18 98 03/02/20 20:00 97.3 82 20 132/81 (98) 96 03/02/20 16:00 98.9 89 19 129/83 (98) 95 03/02/20 12:23 75 18 100 Nasal Cannula 2.0 28 78 18 99 03/02/20 12:00 97.5 87 19 126/79 (95) 98 Intake and Output 03/02/20 03/03/20 19:00 07:00 Intake Total 680 ml 900 ml Output Total 2100 ml 2200 ml Balance -1420 ml -1300 ml Intake Free Water 100 ml 250 ml IV Total 400 ml Tube Feeding 580 ml 250 ml Output Urine Total 2100 ml 2200 ml General Appearance: no acute distress HEENT: normocephalic, mucous membranes moist Respiratory: chest wall non-tender, lungs clear Cardiovascular: normal peripheral pulses, normal rate Abdomen: normal bowel sounds Microbiology Date/Time Source Procedure Growth Status 03/01/20 08:00 Nasal Nares Right MRSA Culture - Final Staphylococcus Aureus - Mrsa Complete 03/01/20 08:00 Rectum VRE Culture - Final Enterococcus Faecium - Vre Complete Laboratory Tests 03/02/20 11:15: Vancomycin Level Trough 28.6H 03/03/20 05:10: White Blood Count 7.6, Red Blood Count 3.50L, Hemoglobin 9.8L, Hematocrit 30.0L , Mean Corpuscular Volume 86, Mean Corpuscular Hemoglobin 28.1, Mean Corpuscular Hemoglobin Concent 32.7, Red Cell Distribution Width 14.9H, Platelet Count 279, Mean Platelet Volume 6.5, Neutrophils (%) (Auto) 72.2, Lymphocytes (%) (Auto) 18.7L, Monocytes (%) (Auto) 6.2, Eosinophils (%) (Auto) 1.7, Basophils (%) (Auto) 1.2, Sodium Level 147H, Potassium Level 3.3L, Chloride Level 110H, Carbon Dioxide Level 29, Anion Gap 8, Blood Urea Nitrogen 8 , Creatinine 0.4L, Estimat Glomerular Filtration Rate > 60, Glucose Level 113H, Calcium Level 8.1L, Total Bilirubin 0.4, Aspartate Amino Transf (AST/SGOT) 14L, Alanine Aminotransferase (ALT/SGPT) 13, Alkaline Phosphatase 57, Total Protein 7.0, Albumin 2.2L, Globulin 4.8, Albumin/Globulin Ratio 0.5L Current Medications Medications (Trade) Dose Ordered Sig/Mohan Route PRN Reason Start Time Stop Time Status Last Admin Dose Admin Acetaminophen (Tylenol) 650 mg Q4H PRN ORAL fever/bright 03/02/20 06:15 03/30/20 02:14 Acetaminophen (Tylenol) 650 mg Q4H PRN ORAL For Pain 03/02/20 20:00 04/01/20 19:59 03/02/20 20:51 Albuterol/ Ipratropium (Albuterol/ Ipratropium) 3 ml Q6HRT HHN 03/02/20 07:00 03/05/20 06:59 03/03/20 08:24 Artificial Tears (Akwa-Tears) 2 drop Q4H PRN BOTH EYES Dry Eyes 03/03/20 09:30 04/02/20 09:29 Clonazepam (KlonoPIN) 1 mg BEDTIME ORAL 03/02/20 21:00 03/07/20 20:59 03/02/20 20:51 Dextrose (Dextrose 50%) 25 ml Q30M PRN IV Hypoglycemia 03/02/20 06:15 05/29/20 02:14 Dextrose (Dextrose 50%) 50 ml Q30M PRN IV Hypoglycemia 03/02/20 06:15 05/29/20 02:14 Dextrose/ Electrolytes 1,000 ml @ 75 mls/hr [id number] IV 03/03/20 10:00 04/02/20 09:59 03/03/20 09:52 Heparin Sodium (Porcine) (Heparin 5000 units/ml) 5,000 units EVERY 12 HOURS SUBQ 03/02/20 09:00 04/14/20 08:59 03/03/20 09:07 Insulin Aspart (NovoLOG) EVERY 6 HOURS SUBQ 03/02/20 12:00 05/29/20 06:29 Minocycline HCl (Minocin) 100 mg Q12HR ORAL 03/02/20 13:00 03/09/20 12:59 03/03/20 09:06 Potassium Chloride (K-Dur) 30 meq ONCE GT 03/03/20 09:30 03/03/20 10:30 03/03/20 09:51 Risperidone (RisperDAL) 1 mg BEDTIME ORAL 03/02/20 21:00 04/14/20 20:59 03/02/20 20:51 Vancomycin HCl (Vanco pharmacy to dose) 1 ea DAILY PRN MISC Per rx protocol 03/02/20 09:00 03/30/20 02:14 Vancomycin HCl 750 mg/Sodium Chloride 275 ml @ 183.333 mls/hr Q8HR@0200,1000,1800 IVPB 03/02/20 18:00 03/07/20 17:59 03/03/20 09:08 Assessment/Plan Assessment/Plan IMPRESSION: 1. alf acquired pneumonia. 2. Developmental delay. 3. History of quadriplegia. 4. Chronic tracheostomy. DISCUSSION: Continue Zosyn. Continue oxygen. Continue breathing treatments. Agree with vancomycin. I will follow. Jeaneth Bunn Omar Syed MD Mar 03, 2020 10:19
--- NOTE | 2020-03-03 11:04 | Infectious Diseases Prog Note ---
Assessment/Plan Assessment/Plan antibiotics : vancomycin iv, minocycline A 1. MRSA pneumonia 2. acenitobacter UTI 3. leucocytosis improving 4. diabetes mellitus 5. hypertension 6. 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 continue iv vancomycin 6 more days 2. continue minocycline 5 more days 3. will follow up cultures Subjective ROS Limited/Unobtainable: Yes Allergies: Coded Allergies: No Known Allergies (Unverified , 02/29/20) Objective Last 24 Hour Vital Signs Date Time Temp Pulse Resp B/P (MAP) Pulse Ox O2 Delivery O2 Flow Rate FiO2 03/03/20 09:00 Nasal Cannula 1.0 03/03/20 08:24 79 18 100 Nasal Cannula 2.0 28 76 20 98 03/03/20 08:00 97.3 72 18 127/81 (96) 100 03/03/20 04:00 97.2 78 18 114/74 (87) 100 03/03/20 00:49 72 18 99 Nasal Cannula 2.0 28 70 20 97 03/03/20 00:00 98.1 77 16 115/75 (88) 99 03/02/20 21:00 Nasal Cannula 1.0 03/02/20 20:10 75 18 100 Nasal Cannula 2.0 28 72 18 98 03/02/20 20:00 97.3 82 20 132/81 (98) 96 03/02/20 16:00 98.9 89 19 129/83 (98) 95 03/02/20 12:23 75 18 100 Nasal Cannula 2.0 28 78 18 99 03/02/20 12:00 97.5 87 19 126/79 (95) 98 Height (Feet): 5 Height (Inches): 4.00 Weight (Pounds): 114 Respiratory/Chest: lungs clear Cardiovascular: normal rate, regular rhythm, no gallop/murmur Abdomen: soft, non tender, other - GT Extremities: no edema Microbiology Date/Time Source Procedure Growth Status 03/01/20 08:00 Nasal Nares Right MRSA Culture - Final Staphylococcus Aureus - Mrsa Complete 03/01/20 08:00 Rectum VRE Culture - Final Enterococcus Faecium - Vre Complete Laboratory Tests Test 03/02/20 11:15 03/03/20 05:10 Vancomycin Level Trough 28.6 ug/mL (5.0-12.0) H White Blood Count 7.6 K/UL (4.8-10.8) Red Blood Count 3.50 M/UL (4.70-6.10) L Hemoglobin 9.8 G/DL (14.2-18.0) L Hematocrit 30.0 % (42.0-52.0) L Mean Corpuscular Volume 86 FL (80-99) Mean Corpuscular Hemoglobin 28.1 PG (27.0-31.0) Mean Corpuscular Hemoglobin Concent 32.7 G/DL (32.0-36.0) Red Cell Distribution Width 14.9 % (11.6-14.8) H Platelet Count 279 K/UL (150-450) Mean Platelet Volume 6.5 FL (6.5-10.1) Neutrophils (%) (Auto) 72.2 % (45.0-75.0) Lymphocytes (%) (Auto) 18.7 % (20.0-45.0) L Monocytes (%) (Auto) 6.2 % (1.0-10.0) Eosinophils (%) (Auto) 1.7 % (0.0-3.0) Basophils (%) (Auto) 1.2 % (0.0-2.0) Sodium Level 147 MMOL/L (136-145) H Potassium Level 3.3 MMOL/L (3.5-5.1) L Chloride Level 110 MMOL/L (98-107) H Carbon Dioxide Level 29 MMOL/L (21-32) Anion Gap 8 mmol/L (5-15) Blood Urea Nitrogen 8 mg/dL (7-18) Creatinine 0.4 MG/DL (0.55-1.30) L Estimat Glomerular Filtration Rate > 60 mL/min (>60) Glucose Level 113 MG/DL (74-106) H Calcium Level 8.1 MG/DL (8.5-10.1) L Total Bilirubin 0.4 MG/DL (0.2-1.0) Aspartate Amino Transf (AST/SGOT) 14 U/L (15-37) L Alanine Aminotransferase (ALT/SGPT) 13 U/L (12-78) Alkaline Phosphatase 57 U/L (46-116) Total Protein 7.0 G/DL (6.4-8.2) Albumin 2.2 G/DL (3.4-5.0) L Globulin 4.8 g/dL Albumin/Globulin Ratio 0.5 (1.0-2.7) L Current Medications Medications (Trade) Dose Ordered Sig/Mohan Route PRN Reason Start Time Stop Time Status Last Admin Dose Admin Acetaminophen (Tylenol) 650 mg Q4H PRN ORAL fever/bright 03/02/20 06:15 03/30/20 02:14 Acetaminophen (Tylenol) 650 mg Q4H PRN ORAL For Pain 03/02/20 20:00 04/01/20 19:59 03/02/20 20:51 Albuterol/ Ipratropium (Albuterol/ Ipratropium) 3 ml Q6HRT HHN 03/02/20 07:00 03/05/20 06:59 03/03/20 08:24 Artificial Tears (Akwa-Tears) 2 drop Q4H PRN BOTH EYES Dry Eyes 03/03/20 09:30 04/02/20 09:29 Clonazepam (KlonoPIN) 1 mg BEDTIME ORAL 03/02/20 21:00 03/07/20 20:59 03/02/20 20:51 Dextrose (Dextrose 50%) 25 ml Q30M PRN IV Hypoglycemia 03/02/20 06:15 05/29/20 02:14 Dextrose (Dextrose 50%) 50 ml Q30M PRN IV Hypoglycemia 03/02/20 06:15 05/29/20 02:14 Dextrose/ Electrolytes 1,000 ml @ 75 mls/hr [id number] IV 03/03/20 10:00 04/02/20 09:59 03/03/20 09:52 Heparin Sodium (Porcine) (Heparin 5000 units/ml) 5,000 units EVERY 12 HOURS SUBQ 03/02/20 09:00 04/14/20 08:59 03/03/20 09:07 Insulin Aspart (NovoLOG) EVERY 6 HOURS SUBQ 03/02/20 12:00 05/29/20 06:29 Minocycline HCl (Minocin) 100 mg Q12HR ORAL 03/02/20 13:00 03/09/20 12:59 03/03/20 09:06 Risperidone (RisperDAL) 1 mg BEDTIME ORAL 03/02/20 21:00 04/14/20 20:59 03/02/20 20:51 Vancomycin HCl (Vanco pharmacy to dose) 1 ea DAILY PRN MISC Per rx protocol 03/02/20 09:00 03/30/20 02:14 Vancomycin HCl 750 mg/Sodium Chloride 275 ml @ 183.333 mls/hr Q8HR@0200,1000,1800 IVPB 03/02/20 18:00 03/07/20 17:59 03/03/20 09:08 Lakhwinder Bonds MD Mar 03, 2020 11:04
--- NOTE | 2020-03-03 11:48 | Diagnostic Imaging Report ---
Procedure: XRAY Chest 1v Reason for study: Reason For Exam: COUGH Comparison films: 02/29/2020. FINDINGS: A single one view chest is obtained. Vascularity is normal. Improving basilar infiltrates noted. There is some residual hazy densities right upper lobe as well as both lung bases. Cardiac and mediastinal silhouette are within normal limits. CP angles are sharp. The bony thorax appear unremarkable. IMPRESSION: Improving infiltrates with mild residual.
[2020-03-03 12:00] VITALS: BP 135/75
[2020-03-03] MEDS ORDERED: TRADJENTA5 MG GT (13:38)
[2020-03-03] MEDS ORDERED: SANTYL TP (13:38)
[2020-03-03] MEDS ORDERED: PRO-STAT LIQUID30 ML GT (13:39)
[2020-03-03 16:00] VITALS: BP 142/88
--- NOTE | 2020-03-03 18:26 | Surgery Progress Note ---
Surgery Progress Note Subjective Additional Comments leukocytosis resolved labs improved comfortable Objective Last 24 Hour Vital Signs Date Time Temp Pulse Resp B/P (MAP) Pulse Ox O2 Delivery O2 Flow Rate FiO2 03/03/20 16:00 97.7 79 18 142/88 (106) 100 03/03/20 13:09 80 18 100 Nasal Cannula 2.0 28 78 20 98 03/03/20 12:00 97.5 74 18 135/75 (95) 100 03/03/20 09:00 Nasal Cannula 1.0 03/03/20 08:24 79 18 100 Nasal Cannula 2.0 28 76 20 98 03/03/20 08:00 97.3 72 18 127/81 (96) 100 03/03/20 04:00 97.2 78 18 114/74 (87) 100 03/03/20 00:49 72 18 99 Nasal Cannula 2.0 28 70 20 97 03/03/20 00:00 98.1 77 16 115/75 (88) 99 03/02/20 21:00 Nasal Cannula 1.0 03/02/20 20:10 75 18 100 Nasal Cannula 2.0 28 72 18 98 03/02/20 20:00 97.3 82 20 132/81 (98) 96 I&O Intake and Output 03/02/20 03/03/20 19:00 07:00 Intake Total 680 ml 900 ml Output Total 2100 ml 2200 ml Balance -1420 ml -1300 ml Intake Free Water 100 ml 250 ml IV Total 400 ml Tube Feeding 580 ml 250 ml Output Urine Total 2100 ml 2200 ml Dressing: other Wound: other Cardiovascular: RSR Respiratory: decreased breath sounds Abdomen: soft, non-tender, present bowel sounds Extremities: no tenderness, no cyanosis Laboratory Tests Test 03/03/20 05:10 03/03/20 17:20 White Blood Count 7.6 K/UL (4.8-10.8) Red Blood Count 3.50 M/UL (4.70-6.10) L Hemoglobin 9.8 G/DL (14.2-18.0) L Hematocrit 30.0 % (42.0-52.0) L Mean Corpuscular Volume 86 FL (80-99) Mean Corpuscular Hemoglobin 28.1 PG (27.0-31.0) Mean Corpuscular Hemoglobin Concent 32.7 G/DL (32.0-36.0) Red Cell Distribution Width 14.9 % (11.6-14.8) H Platelet Count 279 K/UL (150-450) Mean Platelet Volume 6.5 FL (6.5-10.1) Neutrophils (%) (Auto) 72.2 % (45.0-75.0) Lymphocytes (%) (Auto) 18.7 % (20.0-45.0) L Monocytes (%) (Auto) 6.2 % (1.0-10.0) Eosinophils (%) (Auto) 1.7 % (0.0-3.0) Basophils (%) (Auto) 1.2 % (0.0-2.0) Sodium Level 147 MMOL/L (136-145) H Potassium Level 3.3 MMOL/L (3.5-5.1) L Chloride Level 110 MMOL/L (98-107) H Carbon Dioxide Level 29 MMOL/L (21-32) Anion Gap 8 mmol/L (5-15) Blood Urea Nitrogen 8 mg/dL (7-18) Creatinine 0.4 MG/DL (0.55-1.30) L Estimat Glomerular Filtration Rate > 60 mL/min (>60) Glucose Level 113 MG/DL (74-106) H Calcium Level 8.1 MG/DL (8.5-10.1) L Total Bilirubin 0.4 MG/DL (0.2-1.0) Aspartate Amino Transf (AST/SGOT) 14 U/L (15-37) L Alanine Aminotransferase (ALT/SGPT) 13 U/L (12-78) Alkaline Phosphatase 57 U/L (46-116) Total Protein 7.0 G/DL (6.4-8.2) Albumin 2.2 G/DL (3.4-5.0) L Globulin 4.8 g/dL Albumin/Globulin Ratio 0.5 (1.0-2.7) L Vancomycin Level Trough 17.0 ug/mL (5.0-12.0) H Plan Problems: (1) UTI (urinary tract infection) (2) Pneumonia (3) Respiratory distress Assessment & Plan: Lungs: Low lung volumes with bronchovascular crowding. Retrocardiac and left base atelectasis or consolidation. Pleural space: No pleural effusion or pneumothorax. Heart: Unremarkable. No cardiomegaly. Mediastinum: Unremarkable. Bones/joints: No acute abnormality IMPRESSION: 1. Low lung volumes with bronchovascular crowding. 2. Retrocardiac and left base atelectasis or consolidation. 3. Otherwise no acute cardiopulmonary disease. 4. If there is continued concern, recommend frontal and lateral chest radiographs or CT. (4) SOB (shortness of breath) (5) Protein-calorie malnutrition, severe (6) Stage 4 skin ulcer of sacral region Assessment & Plan: Patient identified admission to have significant low body weight BMI 19 abnormal labs and a stage IV sacral decubitus ulcer. Ulcer was identified to likely have prior intervention. Bone is palpable. There is granulation tissue identified with minimal tunneling. Periwound is intact and chronically scarred. No significant maceration identified no purulent drainage no foul odor. Wound washed and dressings applied. Care plan initiated. Nutritional optimization, local care, air mattress, turn every 2 hours, offload pressure. Will follow with recommendations. Thank you for let me participate in patient's care Yaniv Eden Mar 03, 2020 18:26
[2020-03-03 20:00] VITALS: BP 135/85
[2020-03-04] VITALS: BP 119/82
[2020-03-04] MEDS: Albuterol/Ipratropium 3ml neb HHN SCH ×4 (00:13→19:16)
[2020-03-04] MEDS: Vancomycin 750 MG in NS 275 ML IVPB SCH ×3 (00:57→17:38)
--- NOTE | 2020-03-04 02:42 | Cardiology Progress Note ---
Subjective DATE OF SERVICE: Mar 03, 2020 Still withdrawn but more alert Congested but less hypoxic and SOB. Remains on IV abx -cultures noted Objective Last 24 Hour Vital Signs Date Time Temp Pulse Resp B/P (MAP) Pulse Ox O2 Delivery O2 Flow Rate FiO2 03/04/20 00:14 76 18 100 Nasal Cannula 2.0 28 73 20 98 03/04/20 00:00 97.2 75 16 119/82 (94) 100 03/03/20 21:00 Nasal Cannula 1.0 03/03/20 20:00 97.7 74 18 135/85 (102) 100 03/03/20 19:12 97 Nasal Cannula 2.0 28 03/03/20 19:12 83 18 100 Nasal Cannula 2.0 28 81 20 98 03/03/20 16:00 97.7 79 18 142/88 (106) 100 03/03/20 13:09 80 18 100 Nasal Cannula 2.0 28 78 20 98 03/03/20 12:00 97.5 74 18 135/75 (95) 100 03/03/20 09:00 Nasal Cannula 1.0 03/03/20 08:24 79 18 100 Nasal Cannula 2.0 28 76 20 98 03/03/20 08:00 97.3 72 18 127/81 (96) 100 03/03/20 04:00 97.2 78 18 114/74 (87) 100 ROS: no change from my dictation of 02/28/20 HEENT: normal ENT inspection RHYTHM: ST, PACs LUNGS: bilat. rhonchi and rales CARDIAC: regular rhythm, normal S1 and S2, tachycardia ABDOMEN: normal bowel sounds, non tender, soft, no organomegaly, no mass EXTREMITIES: non-tender, No edema Laboratory Tests Test 03/03/20 05:10 03/03/20 17:20 White Blood Count 7.6 K/UL (4.8-10.8) Red Blood Count 3.50 M/UL (4.70-6.10) L Hemoglobin 9.8 G/DL (14.2-18.0) L Hematocrit 30.0 % (42.0-52.0) L Mean Corpuscular Volume 86 FL (80-99) Mean Corpuscular Hemoglobin 28.1 PG (27.0-31.0) Mean Corpuscular Hemoglobin Concent 32.7 G/DL (32.0-36.0) Red Cell Distribution Width 14.9 % (11.6-14.8) H Platelet Count 279 K/UL (150-450) Mean Platelet Volume 6.5 FL (6.5-10.1) Neutrophils (%) (Auto) 72.2 % (45.0-75.0) Lymphocytes (%) (Auto) 18.7 % (20.0-45.0) L Monocytes (%) (Auto) 6.2 % (1.0-10.0) Eosinophils (%) (Auto) 1.7 % (0.0-3.0) Basophils (%) (Auto) 1.2 % (0.0-2.0) Sodium Level 147 MMOL/L (136-145) H Potassium Level 3.3 MMOL/L (3.5-5.1) L Chloride Level 110 MMOL/L (98-107) H Carbon Dioxide Level 29 MMOL/L (21-32) Anion Gap 8 mmol/L (5-15) Blood Urea Nitrogen 8 mg/dL (7-18) Creatinine 0.4 MG/DL (0.55-1.30) L Estimat Glomerular Filtration Rate > 60 mL/min (>60) Glucose Level 113 MG/DL (74-106) H Calcium Level 8.1 MG/DL (8.5-10.1) L Total Bilirubin 0.4 MG/DL (0.2-1.0) Aspartate Amino Transf (AST/SGOT) 14 U/L (15-37) L Alanine Aminotransferase (ALT/SGPT) 13 U/L (12-78) Alkaline Phosphatase 57 U/L (46-116) Total Protein 7.0 G/DL (6.4-8.2) Albumin 2.2 G/DL (3.4-5.0) L Globulin 4.8 g/dL Albumin/Globulin Ratio 0.5 (1.0-2.7) L Vancomycin Level Trough 17.0 ug/mL (5.0-12.0) H Microbiology Date/Time Source Procedure Growth Status 03/01/20 08:00 Rectum VRE Culture - Final Enterococcus Faecium - Vre Complete 03/01/20 08:00 Nasal Nares Right MRSA Culture - Final Staphylococcus Aureus - Mrsa Complete Assessment/Plan Assessment/Plan Healthcare associated MRSA PNA Aspiration Severe sepsis Sinus tachycardia Acute myocardial ischemia Leukocytosis Hypovolemia/dehydration/hypernatremia Hypokalemia Stage 4 sacral decubitus Severe protein/calorie malnutrition MDR Acenitobacter UTI IVF - hypotonic gambling monitor discont'd Antimicrobials per Dr Bonds Respiratory hygiene/taper O2 DVT prophyl Skin/wound care Protein suppl Potassium and free water replacement Delio Rain MD Mar 04, 2020 02:42
[2020-03-04 04:00] VITALS: BP 119/82
[2020-03-04] MEDS: NovoLOG Insulin Flexpen SUBQ SCH ×4 (05:41→23:08)
[2020-03-04 06:48] LABS: BASOPHILS % (AUTO) 1.1 % (0.0-2.0); EOSINOPHILS % (AUTO) 2.5 % (0.0-3.0); HEMATOCRIT 34.3 % (42.0-52.0); HEMOGLOBIN 11.3 G/DL (14.2-18.0); LYMPHOCYTES % (AUTO) 14.8 % (20.0-45.0); MEAN CORPUSCULAR VOLUME 85 FL (80-99); MONOCYTES % (AUTO) 6.9 % (1.0-10.0); NEUTROPHILS % (AUTO) 74.7 % (45.0-75.0); PLATELET COUNT 252 K/UL (150-450); RED BLOOD COUNT 4.03 M/UL (4.70-6.10); RED CELL DISTRIBUTION WIDTH 15.1 % (11.6-14.8)
[2020-03-04 07:24] LABS: ALANINE AMINOTRANSFERASE 13 U/L (12-78); ALBUMIN 2.3 G/DL (3.4-5.0); ALBUMIN/GLOBULIN RATIO 0.5 (1.0-2.7); ALKALINE PHOSPHATASE 58 U/L (46-116); ANION GAP 9 mmol/L (5-15); ASPARTATE AMINO TRANSFERASE 15 U/L (15-37); BILIRUBIN,TOTAL 0.3 MG/DL (0.2-1.0); BLOOD UREA NITROGEN 8 mg/dL (7-18); CALCIUM 8.7 MG/DL (8.5-10.1); CARBON DIOXIDE 27 MMOL/L (21-32); CHLORIDE 106 MMOL/L (98-107); CREATININE 0.4 MG/DL (0.55-1.30); POTASSIUM 3.9 MMOL/L (3.5-5.1); SODIUM 142 MMOL/L (136-145)
[2020-03-04 08:00] VITALS: BP 126/87
[2020-03-04] MEDS: Minocycline HCl 50mg cap ORAL SCH ×2 (09:18→20:48)
[2020-03-04] MEDS: Heparin 5000 units/ml inj SUBQ SCH ×2 (09:19→20:51)
--- NOTE | 2020-03-04 10:23 | Pulmonology Progress Note ---
Subjective ROS Limited/Unobtainable: Yes Interval Events: None new reported Constitutional: Reports: no symptoms HEENT: Repors: no symptoms Respiratory: Reports: no symptoms Cardiovascular: Reports: no symptoms Allergies: Coded Allergies: No Known Allergies (Unverified , 02/29/20) All Systems: reviewed and negative except above Objective Last 24 Hour Vital Signs Date Time Temp Pulse Resp B/P (MAP) Pulse Ox O2 Delivery O2 Flow Rate FiO2 03/04/20 08:36 100 Nasal Cannula 1.0 24 03/04/20 08:36 88 18 100 Nasal Cannula 1.0 24 94 16 100 03/04/20 08:00 97.7 70 19 126/87 (100) 97 03/04/20 04:00 97.8 81 18 119/82 (94) 100 03/04/20 00:14 76 18 100 Nasal Cannula 2.0 28 73 20 98 03/04/20 00:00 97.2 75 16 119/82 (94) 100 03/03/20 21:00 Nasal Cannula 1.0 03/03/20 20:00 97.7 74 18 135/85 (102) 100 03/03/20 19:12 97 Nasal Cannula 2.0 28 03/03/20 19:12 83 18 100 Nasal Cannula 2.0 28 81 20 98 03/03/20 16:00 97.7 79 18 142/88 (106) 100 03/03/20 13:09 80 18 100 Nasal Cannula 2.0 28 78 20 98 03/03/20 12:00 97.5 74 18 135/75 (95) 100 Intake and Output 03/03/20 03/04/20 19:00 07:00 Intake Total 630 ml 1375 ml Output Total 1500 ml Balance -870 ml 1375 ml Intake Free Water 30 ml 150 ml IV Total 675 ml Tube Feeding 600 ml 550 ml Output Urine Total 1500 ml # Bowel Movements 1 General Appearance: no acute distress HEENT: normocephalic, mucous membranes moist Respiratory: chest wall non-tender, lungs clear Cardiovascular: normal peripheral pulses, normal rate Abdomen: normal bowel sounds Laboratory Tests 03/03/20 17:20: Vancomycin Level Trough 17.0H 03/04/20 05:20: White Blood Count 9.0, Red Blood Count 4.03L, Hemoglobin 11.3L, Hematocrit 34.3L , Mean Corpuscular Volume 85, Mean Corpuscular Hemoglobin 28.1, Mean Corpuscular Hemoglobin Concent 33.0, Red Cell Distribution Width 15.1H, Platelet Count 252, Mean Platelet Volume 6.9, Neutrophils (%) (Auto) 74.7, Lymphocytes (%) (Auto) 14.8L, Monocytes (%) (Auto) 6.9, Eosinophils (%) (Auto) 2.5, Basophils (%) (Auto) 1.1, Sodium Level 142, Potassium Level 3.9, Chloride Level 106, Carbon Dioxide Level 27, Anion Gap 9, Blood Urea Nitrogen 8, Creatinine 0.4L, Estimat Glomerular Filtration Rate > 60, Glucose Level 175H, Calcium Level 8.7, Total Bilirubin 0.3, Aspartate Amino Transf (AST/SGOT) 15, Alanine Aminotransferase (ALT/SGPT) 13, Alkaline Phosphatase 58, Total Protein 7.4, Albumin 2.3L, Globulin 5.1, Albumin/Globulin Ratio 0.5L Current Medications Medications (Trade) Dose Ordered Sig/Mohan Route PRN Reason Start Time Stop Time Status Last Admin Dose Admin Acetaminophen (Tylenol) 650 mg Q4H PRN ORAL fever/bright 03/02/20 06:15 03/30/20 02:14 Acetaminophen (Tylenol) 650 mg Q4H PRN ORAL For Pain 03/02/20 20:00 04/01/20 19:59 03/02/20 20:51 Albuterol/ Ipratropium (Albuterol/ Ipratropium) 3 ml Q6HRT HHN 03/02/20 07:00 03/05/20 06:59 03/04/20 08:36 Artificial Tears (Akwa-Tears) 2 drop Q4H PRN BOTH EYES Dry Eyes 03/03/20 09:30 04/02/20 09:29 Clonazepam (KlonoPIN) 1 mg BEDTIME ORAL 03/02/20 21:00 03/07/20 20:59 03/03/20 20:36 Dextrose (Dextrose 50%) 25 ml Q30M PRN IV Hypoglycemia 03/02/20 06:15 05/29/20 02:14 Dextrose (Dextrose 50%) 50 ml Q30M PRN IV Hypoglycemia 03/02/20 06:15 05/29/20 02:14 Dextrose/ Electrolytes 1,000 ml @ 75 mls/hr [id number] IV 03/03/20 10:00 04/02/20 09:59 03/03/20 23:30 Heparin Sodium (Porcine) (Heparin 5000 units/ml) 5,000 units EVERY 12 HOURS SUBQ 03/02/20 09:00 04/14/20 08:59 03/04/20 09:19 Insulin Aspart (NovoLOG) EVERY 6 HOURS SUBQ 03/02/20 12:00 05/29/20 06:29 03/04/20 05:41 Minocycline HCl (Minocin) 100 mg Q12HR ORAL 03/02/20 13:00 03/09/20 12:59 03/04/20 09:18 Risperidone (RisperDAL) 1 mg BEDTIME ORAL 03/02/20 21:00 04/14/20 20:59 03/03/20 20:36 Vancomycin HCl (Vanco pharmacy to dose) 1 ea DAILY PRN MISC Per rx protocol 03/02/20 09:00 03/30/20 02:14 Vancomycin HCl 750 mg/Sodium Chloride 275 ml @ 183.333 mls/hr Q8HR@0200,1000,1800 IVPB 03/02/20 18:00 03/07/20 17:59 03/04/20 09:23 Assessment/Plan Assessment/Plan IMPRESSION: 1. retirement acquired pneumonia. 2. Developmental delay. 3. History of quadriplegia. 4. Chronic tracheostomy. DISCUSSION: Continue Zosyn. Continue oxygen. Continue breathing treatments. Agree with vancomycin. I will follow. Jeaneth Bunn Omar Syed MD Mar 04, 2020 10:23
--- NOTE | 2020-03-04 10:49 | Infectious Diseases Prog Note ---
Assessment/Plan Assessment/Plan antibiotics : vancomycin iv, minocycline A 1. MRSA pneumonia 2. acenitobacter UTI 3. leucocytosis improving 4. diabetes mellitus 5. hypertension 6. 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 continue iv vancomycin 5 more days 2. continue minocycline 4 more days 3. will follow up cultures Subjective ROS Limited/Unobtainable: Yes Allergies: Coded Allergies: No Known Allergies (Unverified , 02/29/20) Objective Last 24 Hour Vital Signs Date Time Temp Pulse Resp B/P (MAP) Pulse Ox O2 Delivery O2 Flow Rate FiO2 03/04/20 08:36 100 Nasal Cannula 1.0 24 03/04/20 08:36 88 18 100 Nasal Cannula 1.0 24 94 16 100 03/04/20 08:00 97.7 70 19 126/87 (100) 97 03/04/20 04:00 97.8 81 18 119/82 (94) 100 03/04/20 00:14 76 18 100 Nasal Cannula 2.0 28 73 20 98 03/04/20 00:00 97.2 75 16 119/82 (94) 100 03/03/20 21:00 Nasal Cannula 1.0 03/03/20 20:00 97.7 74 18 135/85 (102) 100 03/03/20 19:12 97 Nasal Cannula 2.0 28 03/03/20 19:12 83 18 100 Nasal Cannula 2.0 28 81 20 98 03/03/20 16:00 97.7 79 18 142/88 (106) 100 03/03/20 13:09 80 18 100 Nasal Cannula 2.0 28 78 20 98 03/03/20 12:00 97.5 74 18 135/75 (95) 100 Height (Feet): 5 Height (Inches): 4.00 Weight (Pounds): 114 Respiratory/Chest: lungs clear Cardiovascular: normal rate, regular rhythm, no gallop/murmur Abdomen: soft, non tender, other - GT Extremities: no edema Laboratory Tests Test 03/03/20 17:20 03/04/20 05:20 Vancomycin Level Trough 17.0 ug/mL (5.0-12.0) H White Blood Count 9.0 K/UL (4.8-10.8) Red Blood Count 4.03 M/UL (4.70-6.10) L Hemoglobin 11.3 G/DL (14.2-18.0) L Hematocrit 34.3 % (42.0-52.0) L Mean Corpuscular Volume 85 FL (80-99) Mean Corpuscular Hemoglobin 28.1 PG (27.0-31.0) Mean Corpuscular Hemoglobin Concent 33.0 G/DL (32.0-36.0) Red Cell Distribution Width 15.1 % (11.6-14.8) H Platelet Count 252 K/UL (150-450) Mean Platelet Volume 6.9 FL (6.5-10.1) Neutrophils (%) (Auto) 74.7 % (45.0-75.0) Lymphocytes (%) (Auto) 14.8 % (20.0-45.0) L Monocytes (%) (Auto) 6.9 % (1.0-10.0) Eosinophils (%) (Auto) 2.5 % (0.0-3.0) Basophils (%) (Auto) 1.1 % (0.0-2.0) Sodium Level 142 MMOL/L (136-145) Potassium Level 3.9 MMOL/L (3.5-5.1) Chloride Level 106 MMOL/L (98-107) Carbon Dioxide Level 27 MMOL/L (21-32) Anion Gap 9 mmol/L (5-15) Blood Urea Nitrogen 8 mg/dL (7-18) Creatinine 0.4 MG/DL (0.55-1.30) L Estimat Glomerular Filtration Rate > 60 mL/min (>60) Glucose Level 175 MG/DL (74-106) H Calcium Level 8.7 MG/DL (8.5-10.1) Total Bilirubin 0.3 MG/DL (0.2-1.0) Aspartate Amino Transf (AST/SGOT) 15 U/L (15-37) Alanine Aminotransferase (ALT/SGPT) 13 U/L (12-78) Alkaline Phosphatase 58 U/L (46-116) Total Protein 7.4 G/DL (6.4-8.2) Albumin 2.3 G/DL (3.4-5.0) L Globulin 5.1 g/dL Albumin/Globulin Ratio 0.5 (1.0-2.7) L Current Medications Medications (Trade) Dose Ordered Sig/Mohan Route PRN Reason Start Time Stop Time Status Last Admin Dose Admin Acetaminophen (Tylenol) 650 mg Q4H PRN ORAL fever/bright 03/02/20 06:15 03/30/20 02:14 Acetaminophen (Tylenol) 650 mg Q4H PRN ORAL For Pain 03/02/20 20:00 04/01/20 19:59 03/02/20 20:51 Albuterol/ Ipratropium (Albuterol/ Ipratropium) 3 ml Q6HRT HHN 03/02/20 07:00 03/05/20 06:59 03/04/20 08:36 Artificial Tears (Akwa-Tears) 2 drop Q4H PRN BOTH EYES Dry Eyes 03/03/20 09:30 04/02/20 09:29 Clonazepam (KlonoPIN) 1 mg BEDTIME ORAL 03/02/20 21:00 03/07/20 20:59 03/03/20 20:36 Dextrose (Dextrose 50%) 25 ml Q30M PRN IV Hypoglycemia 03/02/20 06:15 05/29/20 02:14 Dextrose (Dextrose 50%) 50 ml Q30M PRN IV Hypoglycemia 03/02/20 06:15 05/29/20 02:14 Dextrose/ Electrolytes 1,000 ml @ 75 mls/hr [id number] IV 03/03/20 10:00 04/02/20 09:59 03/03/20 23:30 Heparin Sodium (Porcine) (Heparin 5000 units/ml) 5,000 units EVERY 12 HOURS SUBQ 03/02/20 09:00 04/14/20 08:59 03/04/20 09:19 Insulin Aspart (NovoLOG) EVERY 6 HOURS SUBQ 03/02/20 12:00 05/29/20 06:29 03/04/20 05:41 Minocycline HCl (Minocin) 100 mg Q12HR ORAL 03/02/20 13:00 03/09/20 12:59 03/04/20 09:18 Risperidone (RisperDAL) 1 mg BEDTIME ORAL 03/02/20 21:00 04/14/20 20:59 03/03/20 20:36 Vancomycin HCl (Vanco pharmacy to dose) 1 ea DAILY PRN MISC Per rx protocol 03/02/20 09:00 03/30/20 02:14 Vancomycin HCl 750 mg/Sodium Chloride 275 ml @ 183.333 mls/hr Q8HR@0200,1000,1800 IVPB 03/02/20 18:00 03/07/20 17:59 03/04/20 09:23 Lakhwinder Bonds MD Mar 04, 2020 10:49
[2020-03-04 12:00] VITALS: BP 129/86
[2020-03-04] MEDS: D5W w/KCl 20mEq 1,000 ML IV SCH (12:03)
--- NOTE | 2020-03-04 14:30 | Surgery Progress Note ---
Surgery Progress Note Subjective Additional Comments no acute events Objective Last 24 Hour Vital Signs Date Time Temp Pulse Resp B/P (MAP) Pulse Ox O2 Delivery O2 Flow Rate FiO2 03/04/20 13:20 86 18 100 Nasal Cannula 1.0 24 88 16 98 03/04/20 12:00 97.7 96 18 129/86 (100) 98 03/04/20 09:00 Nasal Cannula 1.0 03/04/20 08:36 100 Nasal Cannula 1.0 24 03/04/20 08:36 88 18 100 Nasal Cannula 1.0 24 94 16 100 03/04/20 08:00 97.7 70 19 126/87 (100) 97 03/04/20 04:00 97.8 81 18 119/82 (94) 100 03/04/20 00:14 76 18 100 Nasal Cannula 2.0 28 73 20 98 03/04/20 00:00 97.2 75 16 119/82 (94) 100 03/03/20 21:00 Nasal Cannula 1.0 03/03/20 20:00 97.7 74 18 135/85 (102) 100 03/03/20 19:12 97 Nasal Cannula 2.0 28 03/03/20 19:12 83 18 100 Nasal Cannula 2.0 28 81 20 98 03/03/20 16:00 97.7 79 18 142/88 (106) 100 I&O Intake and Output 03/03/20 03/04/20 19:00 07:00 Intake Total 630 ml 1375 ml Output Total 1500 ml Balance -870 ml 1375 ml Intake Free Water 30 ml 150 ml IV Total 675 ml Tube Feeding 600 ml 550 ml Output Urine Total 1500 ml # Bowel Movements 1 Dressing: other Wound: other Cardiovascular: RSR Respiratory: decreased breath sounds Abdomen: soft, non-tender, present bowel sounds Extremities: no tenderness, no cyanosis Laboratory Tests Test 03/03/20 17:20 03/04/20 05:20 Vancomycin Level Trough 17.0 ug/mL (5.0-12.0) H White Blood Count 9.0 K/UL (4.8-10.8) Red Blood Count 4.03 M/UL (4.70-6.10) L Hemoglobin 11.3 G/DL (14.2-18.0) L Hematocrit 34.3 % (42.0-52.0) L Mean Corpuscular Volume 85 FL (80-99) Mean Corpuscular Hemoglobin 28.1 PG (27.0-31.0) Mean Corpuscular Hemoglobin Concent 33.0 G/DL (32.0-36.0) Red Cell Distribution Width 15.1 % (11.6-14.8) H Platelet Count 252 K/UL (150-450) Mean Platelet Volume 6.9 FL (6.5-10.1) Neutrophils (%) (Auto) 74.7 % (45.0-75.0) Lymphocytes (%) (Auto) 14.8 % (20.0-45.0) L Monocytes (%) (Auto) 6.9 % (1.0-10.0) Eosinophils (%) (Auto) 2.5 % (0.0-3.0) Basophils (%) (Auto) 1.1 % (0.0-2.0) Sodium Level 142 MMOL/L (136-145) Potassium Level 3.9 MMOL/L (3.5-5.1) Chloride Level 106 MMOL/L (98-107) Carbon Dioxide Level 27 MMOL/L (21-32) Anion Gap 9 mmol/L (5-15) Blood Urea Nitrogen 8 mg/dL (7-18) Creatinine 0.4 MG/DL (0.55-1.30) L Estimat Glomerular Filtration Rate > 60 mL/min (>60) Glucose Level 175 MG/DL (74-106) H Calcium Level 8.7 MG/DL (8.5-10.1) Total Bilirubin 0.3 MG/DL (0.2-1.0) Aspartate Amino Transf (AST/SGOT) 15 U/L (15-37) Alanine Aminotransferase (ALT/SGPT) 13 U/L (12-78) Alkaline Phosphatase 58 U/L (46-116) Total Protein 7.4 G/DL (6.4-8.2) Albumin 2.3 G/DL (3.4-5.0) L Globulin 5.1 g/dL Albumin/Globulin Ratio 0.5 (1.0-2.7) L Plan Problems: (1) UTI (urinary tract infection) (2) Pneumonia (3) Respiratory distress Assessment & Plan: Lungs: Low lung volumes with bronchovascular crowding. Retrocardiac and left base atelectasis or consolidation. Pleural space: No pleural effusion or pneumothorax. Heart: Unremarkable. No cardiomegaly. Mediastinum: Unremarkable. Bones/joints: No acute abnormality IMPRESSION: 1. Low lung volumes with bronchovascular crowding. 2. Retrocardiac and left base atelectasis or consolidation. 3. Otherwise no acute cardiopulmonary disease. 4. If there is continued concern, recommend frontal and lateral chest radiographs or CT. (4) SOB (shortness of breath) (5) Protein-calorie malnutrition, severe (6) Stage 4 skin ulcer of sacral region Assessment & Plan: Patient identified admission to have significant low body weight BMI 19 abnormal labs and a stage IV sacral decubitus ulcer. Ulcer was identified to likely have prior intervention. Bone is palpable. There is granulation tissue identified with minimal tunneling. Periwound is intact and chronically scarred. No significant maceration identified no purulent drainage no foul odor. Wound washed and dressings applied. Care plan initiated. Nutritional optimization, local care, air mattress, turn every 2 hours, offload pressure. Will follow with recommendations. Thank you for let me participate in patient's care Yaniv Eden Mar 04, 2020 14:30
[2020-03-04 16:00] VITALS: BP 116/60
--- NOTE | 2020-03-04 16:39 | General Progress Note ---
Subjective ROS Limited/Unobtainable: No Constitutional: Reports: malaise, weakness HEENT: Reports: no symptoms Cardiovascular: Reports: no symptoms Respiratory: Reports: cough, shortness of breath, sputum Gastrointestinal/Abdominal: Reports: difficulty swallowing Genitourinary: Reports: no symptoms Neurologic/Psychiatric: Reports: pre-existing deficit Endocrine: Reports: no symptoms Hematologic/Lymphatic: Reports: anemia Allergies: Coded Allergies: No Known Allergies (Unverified , 02/29/20) All Systems: reviewed and negative except above Subjective no complaints. stable on o2. tolerating gt feeds. WBC improving. cxr improving. On iv and po abx. appears comfortable. no distress. ID and cards noted. Objective Last 24 Hour Vital Signs Date Time Temp Pulse Resp B/P (MAP) Pulse Ox O2 Delivery O2 Flow Rate FiO2 03/04/20 16:00 97.5 94 19 116/60 (78) 100 03/04/20 13:20 86 18 100 Nasal Cannula 1.0 24 88 16 98 03/04/20 12:00 97.7 96 18 129/86 (100) 98 03/04/20 09:00 Nasal Cannula 1.0 03/04/20 08:36 100 Nasal Cannula 1.0 24 03/04/20 08:36 88 18 100 Nasal Cannula 1.0 24 94 16 100 03/04/20 08:00 97.7 70 19 126/87 (100) 97 03/04/20 04:00 97.8 81 18 119/82 (94) 100 03/04/20 00:14 76 18 100 Nasal Cannula 2.0 28 73 20 98 03/04/20 00:00 97.2 75 16 119/82 (94) 100 03/03/20 21:00 Nasal Cannula 1.0 03/03/20 20:00 97.7 74 18 135/85 (102) 100 03/03/20 19:12 97 Nasal Cannula 2.0 28 03/03/20 19:12 83 18 100 Nasal Cannula 2.0 28 81 20 98 Intake and Output 03/03/20 03/04/20 19:00 07:00 Intake Total 630 ml 1500 ml Output Total 1500 ml Balance -870 ml 1500 ml Intake Free Water 30 ml 225 ml IV Total 675 ml Tube Feeding 600 ml 600 ml Output Urine Total 1500 ml # Bowel Movements 1 Laboratory Tests 03/03/20 17:20: Vancomycin Level Trough 17.0H 03/04/20 05:20: White Blood Count 9.0, Red Blood Count 4.03L, Hemoglobin 11.3L, Hematocrit 34.3L , Mean Corpuscular Volume 85, Mean Corpuscular Hemoglobin 28.1, Mean Corpuscular Hemoglobin Concent 33.0, Red Cell Distribution Width 15.1H, Platelet Count 252, Mean Platelet Volume 6.9, Neutrophils (%) (Auto) 74.7, Lymphocytes (%) (Auto) 14.8L, Monocytes (%) (Auto) 6.9, Eosinophils (%) (Auto) 2.5, Basophils (%) (Auto) 1.1, Sodium Level 142, Potassium Level 3.9, Chloride Level 106, Carbon Dioxide Level 27, Anion Gap 9, Blood Urea Nitrogen 8, Creatinine 0.4L, Estimat Glomerular Filtration Rate > 60, Glucose Level 175H, Calcium Level 8.7, Total Bilirubin 0.3, Aspartate Amino Transf (AST/SGOT) 15, Alanine Aminotransferase (ALT/SGPT) 13, Alkaline Phosphatase 58, Total Protein 7.4, Albumin 2.3L, Globulin 5.1, Albumin/Globulin Ratio 0.5L Height (Feet): 5 Height (Inches): 4.00 Weight (Pounds): 114 Objective General Appearance: WD/WN, lethargic, confused, thin EENT: normal ENT inspection Neck: non-tender, normal alignment, supple Cardiovascular: normal peripheral pulses, normal rate, regular rhythm Respiratory/Chest: chest wall non-tender, rhonchi - bilaterally Abdomen: normal bowel sounds, non tender, soft, no organomegaly Edema: no edema noted Arm (L), no edema noted Arm (R) Neurologic: disoriented, unresponsive, aphasia Lymphatic: normal anterior cervical (L), normal anterior cervical (R) Assessment/Plan Problem List: (1) Hospital-acquired pneumonia ICD Codes: J18.9 - Pneumonia, unspecified organism; Y95 - Nosocomial condition SNOMED: 775717563 (2) Pneumonia ICD Codes: J18.9 - Pneumonia, unspecified organism SNOMED: 998411076 Qualifiers: Qualified Codes: J18.9 - Pneumonia, unspecified organism (3) SOB (shortness of breath) ICD Codes: R06.02 - Shortness of breath SNOMED: 137568118 (4) Stage 4 skin ulcer of sacral region ICD Codes: L98.429 - Non-pressure chronic ulcer of back with unspecified severity SNOMED: 09468787, 297500546 (5) Protein-calorie malnutrition, severe ICD Codes: E43 - Unspecified severe protein-calorie malnutrition SNOMED: 987455910, 004333328, 418700991 Status: stable, progressing Assessment/Plan: cont iv abx per id monitor cxr ivf gt feeds dvt/stress ulcer prophylaxis turn q2 wound care cont resp care artificial tears suctioning wean fio2 wound care per surgery Dayne Liriano MD Mar 04, 2020 16:39
[2020-03-04] MEDS ORDERED: NS 275ml ONE (18:22)
[2020-03-04 20:00] VITALS: BP 139/89
--- NOTE | 2020-03-04 22:01 | Cardiology Report ---
APPROVED REPORT EKG Measurement Heart [id number] <Conclusion> Sinus tachycardia Possible Right ventricular hypertrophy Abnormal ECG
[2020-03-05] VITALS: BP 127/82
[2020-03-05] MEDS: Albuterol/Ipratropium 3ml neb HHN SCH (00:59)
[2020-03-05] MEDS: D5W w/KCl 20mEq 1,000 ML IV SCH (01:20)
[2020-03-05] MEDS: Vancomycin 750 MG in NS 275 ML IVPB SCH ×2 (01:21→09:05)
[2020-03-05] MEDS ORDERED: VANCOMYCIN750 MG/150 IV (02:42)
[2020-03-05] MEDS ORDERED: DUONEB 0.5-3(2.53 ML HHN (02:42)
[2020-03-05] MEDS ORDERED: RISPERDAL1 MG ORAL (02:42)
[2020-03-05] MEDS ORDERED: MINOCYCLINE HCL50 MG ORAL (02:42)
[2020-03-05] MEDS ORDERED: CLONAZEPAM1 M2 ORAL (02:42)
--- NOTE | 2020-03-05 02:46 | Cardiology Progress Note ---
Subjective DATE OF SERVICE: Mar 04, 2020 Still withdrawn but more alert Congested but less hypoxic and SOB. Remains on IV abx -cultures noted Objective Last 24 Hour Vital Signs Date Time Temp Pulse Resp B/P (MAP) Pulse Ox O2 Delivery O2 Flow Rate FiO2 03/05/20 01:00 100 16 99 Nasal Cannula 1.0 24 97 16 99 03/05/20 00:00 97.6 99 20 127/82 (97) 98 03/04/20 21:00 Nasal Cannula 1.0 03/04/20 20:00 97.7 95 19 139/89 (106) 100 03/04/20 19:17 86 16 100 Nasal Cannula 1.0 24 86 16 99 03/04/20 19:16 99 Nasal Cannula 1.0 24 03/04/20 16:00 97.5 94 19 116/60 (78) 100 03/04/20 13:20 86 18 100 Nasal Cannula 1.0 24 88 16 98 03/04/20 12:00 97.7 96 18 129/86 (100) 98 03/04/20 09:00 Nasal Cannula 1.0 03/04/20 08:36 100 Nasal Cannula 1.0 24 03/04/20 08:36 88 18 100 Nasal Cannula 1.0 24 94 16 100 03/04/20 08:00 97.7 70 19 126/87 (100) 97 03/04/20 04:00 97.8 81 18 119/82 (94) 100 ROS: no change from my dictation of 02/28/20 HEENT: normal ENT inspection RHYTHM: ST, PACs LUNGS: bilat. rhonchi and rales CARDIAC: regular rhythm, normal S1 and S2, tachycardia ABDOMEN: normal bowel sounds, non tender, soft, no organomegaly, no mass EXTREMITIES: non-tender, No edema Laboratory Tests Test 03/04/20 05:20 White Blood Count 9.0 K/UL (4.8-10.8) Red Blood Count 4.03 M/UL (4.70-6.10) L Hemoglobin 11.3 G/DL (14.2-18.0) L Hematocrit 34.3 % (42.0-52.0) L Mean Corpuscular Volume 85 FL (80-99) Mean Corpuscular Hemoglobin 28.1 PG (27.0-31.0) Mean Corpuscular Hemoglobin Concent 33.0 G/DL (32.0-36.0) Red Cell Distribution Width 15.1 % (11.6-14.8) H Platelet Count 252 K/UL (150-450) Mean Platelet Volume 6.9 FL (6.5-10.1) Neutrophils (%) (Auto) 74.7 % (45.0-75.0) Lymphocytes (%) (Auto) 14.8 % (20.0-45.0) L Monocytes (%) (Auto) 6.9 % (1.0-10.0) Eosinophils (%) (Auto) 2.5 % (0.0-3.0) Basophils (%) (Auto) 1.1 % (0.0-2.0) Sodium Level 142 MMOL/L (136-145) Potassium Level 3.9 MMOL/L (3.5-5.1) Chloride Level 106 MMOL/L (98-107) Carbon Dioxide Level 27 MMOL/L (21-32) Anion Gap 9 mmol/L (5-15) Blood Urea Nitrogen 8 mg/dL (7-18) Creatinine 0.4 MG/DL (0.55-1.30) L Estimat Glomerular Filtration Rate > 60 mL/min (>60) Glucose Level 175 MG/DL (74-106) H Calcium Level 8.7 MG/DL (8.5-10.1) Total Bilirubin 0.3 MG/DL (0.2-1.0) Aspartate Amino Transf (AST/SGOT) 15 U/L (15-37) Alanine Aminotransferase (ALT/SGPT) 13 U/L (12-78) Alkaline Phosphatase 58 U/L (46-116) Total Protein 7.4 G/DL (6.4-8.2) Albumin 2.3 G/DL (3.4-5.0) L Globulin 5.1 g/dL Albumin/Globulin Ratio 0.5 (1.0-2.7) L Assessment/Plan Assessment/Plan Healthcare associated MRSA PNA Aspiration Severe sepsis Sinus tachycardia Acute myocardial ischemia Leukocytosis Hypovolemia/dehydration/hypernatremia Hypokalemia Stage 4 sacral decubitus Severe protein/calorie malnutrition MDR Acenitobacter UTI IVF -discont'd court monitor discont'd Antimicrobials per Dr Bonds Respiratory hygiene/taper O2 DVT prophyl Skin/wound care Protein suppl DC planning Delio Rain MD Mar 05, 2020 02:46
[2020-03-05 04:00] VITALS: BP 119/86
[2020-03-05] MEDS: NovoLOG Insulin Flexpen SUBQ SCH ×2 (06:00→12:00)
[2020-03-05 08:00] VITALS: BP 122/83
[2020-03-05] MEDS: Minocycline HCl 50mg cap ORAL SCH (08:56)
[2020-03-05] MEDS: Heparin 5000 units/ml inj SUBQ SCH (08:59)
--- NOTE | 2020-03-05 10:40 | Surgery Progress Note ---
Surgery Progress Note Subjective Additional Comments no acute events comfortable no n/v/f/c Objective Last 24 Hour Vital Signs Date Time Temp Pulse Resp B/P (MAP) Pulse Ox O2 Delivery O2 Flow Rate FiO2 03/05/20 09:17 96 18 99 Nasal Cannula 1.0 24 03/05/20 09:00 Nasal Cannula 1.0 03/05/20 08:00 97.8 96 19 122/83 (96) 99 03/05/20 07:00 99 Nasal Cannula 1.0 24 03/05/20 04:00 97.6 98 20 119/86 (97) 100 03/05/20 01:00 100 16 99 Nasal Cannula 1.0 24 97 16 99 03/05/20 00:00 97.6 99 20 127/82 (97) 98 03/04/20 21:00 Nasal Cannula 1.0 03/04/20 20:00 97.7 95 19 139/89 (106) 100 03/04/20 19:17 86 16 100 Nasal Cannula 1.0 24 86 16 99 03/04/20 19:16 99 Nasal Cannula 1.0 24 03/04/20 16:00 97.5 94 19 116/60 (78) 100 03/04/20 13:20 86 18 100 Nasal Cannula 1.0 24 88 16 98 03/04/20 12:00 97.7 96 18 129/86 (100) 98 I&O Intake and Output 03/04/20 03/05/20 19:00 07:00 Intake Total 2124.999 ml 883.333 ml Output Total 1300 ml 2000 ml Balance 824.999 ml -1116.667 ml Intake Free Water 150 ml 150 ml IV Total 1374.999 ml 183.333 ml Tube Feeding 600 ml 550 ml Output Urine Total 1300 ml 2000 ml # Bowel Movements 2 1 Dressing: other Wound: other Cardiovascular: RSR Respiratory: decreased breath sounds Abdomen: non-tender, present bowel sounds Extremities: no tenderness, no cyanosis Plan Problems: (1) UTI (urinary tract infection) (2) Pneumonia (3) Respiratory distress Assessment & Plan: Lungs: Low lung volumes with bronchovascular crowding. Retrocardiac and left base atelectasis or consolidation. Pleural space: No pleural effusion or pneumothorax. Heart: Unremarkable. No cardiomegaly. Mediastinum: Unremarkable. Bones/joints: No acute abnormality IMPRESSION: 1. Low lung volumes with bronchovascular crowding. 2. Retrocardiac and left base atelectasis or consolidation. 3. Otherwise no acute cardiopulmonary disease. 4. If there is continued concern, recommend frontal and lateral chest radiographs or CT. (4) SOB (shortness of breath) (5) Protein-calorie malnutrition, severe (6) Stage 4 skin ulcer of sacral region Assessment & Plan: Patient identified admission to have significant low body weight BMI 19 abnormal labs and a stage IV sacral decubitus ulcer. Ulcer was i dentified to likely have prior intervention. Bone is palpable. There is granulation tissue identified with minimal tunneling. Periwound is intact and chronically scarred. No significant maceration identified no purulent drainage no foul odor. Wound washed and dressings applied. Care plan initiated. Nutritional optimization, local care, air mattress, turn every 2 hours, offload pressure. Will follow with recommendations. Thank you for let me participate in patient's care Yaniv Eden Mar 05, 2020 10:40
--- NOTE | 2020-03-05 10:58 | Pulmonology Progress Note ---
Subjective ROS Limited/Unobtainable: No Interval Events: None new reported Constitutional: Reports: no symptoms HEENT: Repors: no symptoms Respiratory: Reports: no symptoms Cardiovascular: Reports: no symptoms Allergies: Coded Allergies: No Known Allergies (Unverified , 02/29/20) All Systems: reviewed and negative except above Objective Last 24 Hour Vital Signs Date Time Temp Pulse Resp B/P (MAP) Pulse Ox O2 Delivery O2 Flow Rate FiO2 03/05/20 09:17 96 18 99 Nasal Cannula 1.0 24 03/05/20 09:00 Nasal Cannula 1.0 03/05/20 08:00 97.8 96 19 122/83 (96) 99 03/05/20 07:00 99 Nasal Cannula 1.0 24 03/05/20 04:00 97.6 98 20 119/86 (97) 100 03/05/20 01:00 100 16 99 Nasal Cannula 1.0 24 97 16 99 03/05/20 00:00 97.6 99 20 127/82 (97) 98 03/04/20 21:00 Nasal Cannula 1.0 03/04/20 20:00 97.7 95 19 139/89 (106) 100 03/04/20 19:17 86 16 100 Nasal Cannula 1.0 24 86 16 99 03/04/20 19:16 99 Nasal Cannula 1.0 24 03/04/20 16:00 97.5 94 19 116/60 (78) 100 03/04/20 13:20 86 18 100 Nasal Cannula 1.0 24 88 16 98 03/04/20 12:00 97.7 96 18 129/86 (100) 98 Intake and Output 03/04/20 03/05/20 19:00 07:00 Intake Total 2124.999 ml 883.333 ml Output Total 1300 ml 2000 ml Balance 824.999 ml -1116.667 ml Intake Free Water 150 ml 150 ml IV Total 1374.999 ml 183.333 ml Tube Feeding 600 ml 550 ml Output Urine Total 1300 ml 2000 ml # Bowel Movements 2 1 General Appearance: no acute distress HEENT: normocephalic, mucous membranes moist Respiratory: chest wall non-tender, lungs clear Cardiovascular: normal peripheral pulses, normal rate Abdomen: normal bowel sounds Current Medications Medications (Trade) Dose Ordered Sig/Mohan Route PRN Reason Start Time Stop Time Status Last Admin Dose Admin Acetaminophen (Tylenol) 650 mg Q4H PRN ORAL fever/bright 03/02/20 06:15 03/30/20 02:14 Acetaminophen (Tylenol) 650 mg Q4H PRN ORAL For Pain 03/02/20 20:00 04/01/20 19:59 03/02/20 20:51 Artificial Tears (Akwa-Tears) 2 drop Q4H PRN BOTH EYES Dry Eyes 03/03/20 09:30 04/02/20 09:29 Clonazepam (KlonoPIN) 1 mg BEDTIME ORAL 03/02/20 21:00 03/07/20 20:59 03/04/20 20:48 Dextrose (Dextrose 50%) 25 ml Q30M PRN IV Hypoglycemia 03/02/20 06:15 05/29/20 02:14 Dextrose (Dextrose 50%) 50 ml Q30M PRN IV Hypoglycemia 03/02/20 06:15 05/29/20 02:14 Heparin Sodium (Porcine) (Heparin 5000 units/ml) 5,000 units EVERY 12 HOURS SUBQ 03/02/20 09:00 04/14/20 08:59 03/05/20 08:59 Insulin Aspart (NovoLOG) EVERY 6 HOURS SUBQ 03/02/20 12:00 05/29/20 06:29 03/04/20 23:08 Minocycline HCl (Minocin) 100 mg Q12HR ORAL 03/02/20 13:00 03/09/20 12:59 03/05/20 08:56 Risperidone (RisperDAL) 1 mg BEDTIME ORAL 03/02/20 21:00 04/14/20 20:59 03/04/20 20:48 Vancomycin HCl ([facility] pharmacy to dose) 1 ea DAILY PRN MISC Per rx protocol 03/02/20 09:00 03/30/20 02:14 Vancomycin HCl 750 mg/Sodium Chloride 275 ml @ 183.333 mls/hr Q8HR@0200,1000,1800 IVPB 03/02/20 18:00 03/07/20 17:59 03/05/20 09:05 Assessment/Plan Assessment/Plan IMPRESSION: 1. shelter acquired pneumonia. 2. Developmental delay. 3. History of quadriplegia. 4. Chronic tracheostomy. DISCUSSION: Continue Zosyn. Continue oxygen. Continue breathing treatments. Agree with vancomycin. I will follow. Jeaneth Bunn Omar Syed MD Mar 05, 2020 10:58
[2020-03-05 12:00] VITALS: BP 109/78
--- NOTE | 2020-03-05 17:45 | Discharge Summary ---
DATE OF ADMISSION: 02/29/2020 DATE OF DISCHARGE: 03/05/2020 ADMISSION DIAGNOSES: 1. Sepsis. 2. Pneumonia. 3. History of cerebral palsy. 4. Hypertension. 5. Diabetes. DISCHARGE DIAGNOSES: 1. Sepsis. 2. Pneumonia. 3. History of cerebral palsy. 4. Hypertension. 5. Diabetes. 6. MRSA pneumonia. 7. Acinetobacter UTI. HOSPITAL COURSE: Patient is an unfortunate male with a history of cerebral palsy, diabetes, hypertension, dysphagia status post G-tube. He presented with complaints of fevers and sepsis secondary to UTI and pneumonia. He received broad-spectrum antibiotics. ID and Cardiology consultations were obtained. Antibiotics were adjusted by the ID organizational effectiveness consultant. Patient's hypotension improved with hydration and treatment of his infection. On discharge, he was stable. He will be discharged back to the snf facility to complete IV antibiotics and oral antibiotic therapy for an additional 5 days. DISCHARGE MEDICATIONS: Please see discharge medication list for discharge medications. DIET: G-tube feedings. ACTIVITIES: Ad-james. Dayne Liriano M.D. DR: KRYSTAL JOB#: [id number] CC:
--- NOTE | 2020-03-06 00:34 | Cardiology Progress Note ---
Subjective DATE OF SERVICE: Mar 05, 2020 Much more alert Much less congested but less hypoxic and SOB. Remains on IV abx -cultures noted Objective Last 24 Hour Vital Signs Date Time Temp Pulse Resp B/P (MAP) Pulse Ox O2 Delivery O2 Flow Rate FiO2 03/05/20 12:00 97.3 98 18 109/78 (88) 99 03/05/20 09:17 96 18 99 Nasal Cannula 1.0 24 03/05/20 09:00 Nasal Cannula 1.0 03/05/20 08:00 97.8 96 19 122/83 (96) 99 03/05/20 07:00 99 Nasal Cannula 1.0 24 03/05/20 04:00 97.6 98 20 119/86 (97) 100 03/05/20 01:00 100 16 99 Nasal Cannula 1.0 24 97 16 99 ROS: no change from my dictation of 02/28/20 HEENT: normal ENT inspection RHYTHM: ST, PACs LUNGS: bilateral rhonchi - few CARDIAC: regular rhythm, normal S1 and S2, tachycardia ABDOMEN: normal bowel sounds, non tender, soft, no organomegaly, no mass EXTREMITIES: non-tender, No edema Assessment/Plan Assessment/Plan Healthcare associated MRSA PNA Aspiration Severe sepsis Sinus tachycardia Acute myocardial ischemia Leukocytosis Hypovolemia/dehydration/hypernatremia Hypokalemia Stage 4 sacral decubitus Severe protein/calorie malnutrition MDR Acenitobacter UTI monitoring tech discont'd Antimicrobials per Dr Bonds - complete at SNF Respiratory hygiene/taper O2 DVT prophyl Skin/wound care Protein suppl DC planning to SNF Delio Rain MD Mar 06, 2020 00:34
== END 2020-03-05 16:25 | DRG 871 ==
LOC: EDBD 00:01 → EDSEX 00:24 → EMR 00:24 → 2E 00:38 → EDBEDREQ 03:12 → 4E 03-02 04:46
DX: A41.9 Sepsis, unspecified organism (principal); L89.154 Pressure ulcer of sacral region, stage 4; J96.90 Respiratory failure, unspecified, unspecified whether with hypoxia or hypercapnia; E43 Unspecified severe protein-calorie malnutrition; J15.212 Pneumonia due to Methicillin resistant Staphylococcus aureus; N39.0 Urinary tract infection, site not specified; I50.32 Chronic diastolic (congestive) heart failure; I24.9 Acute ischemic heart disease, unspecified; Z43.1 Encounter for attention to gastrostomy; Y95 Nosocomial condition; G80.9 Cerebral palsy, unspecified; I11.0 Hypertensive heart disease with heart failure; R13.10 Dysphagia, unspecified; B96.89 Other specified bacterial agents as the cause of diseases classified elsewhere; E11.9 Type 2 diabetes mellitus without complications; I51.3 Intracardiac thrombosis, not elsewhere classified; E86.1 Hypovolemia; E86.0 Dehydration; F79 Unspecified intellectual disabilities; Z43.0 Encounter for attention to tracheostomy; E78.5 Hyperlipidemia, unspecified
CPT/HCPCS: 36415; 71045; 80053; 80202; 81003; 82150; 82550; 82553; 82728; 82803; 82962; 83605; 83615; 83735; 83880; 84443; 84484; 85007; 85025; 85379; 85610; 85730; 86140; 87040; 87070; 87081; 87086; 87181; 87205; 93005; 94640; 94664; 96361; 96365; 96367; 99285; J1815; J7620; U0002